=== PATIENT | female | born 1985 | race Hispanic/Latino ===

== ENCOUNTER 2019-05-27 09:37 | Emergency (ER) | payer SELFPAY ==
[2019-05-27] MEDS ORDERED: ACETAMINOPHEN EXTRA STRENGTH 500 MG TABLET ONE (10:07)
[2019-05-27 10:15] LABS: APPEARANCE,URINE Cloudy (CLEAR); BILIRUBIN,URINE Negative (NEGATIVE); COLOR,URINE Yellow (YELLOW); GLUCOSE, URINE (UA) >=1000 mg/dL (NEGATIVE); KETONES,URINE Negative (NEGATIVE); LEUKOCYTE ESTERASE ,URINE Negative (NEGATIVE); NITRATE,URINE Negative (NEGATIVE); OCCULT BLOOD,URINE Moderate (NEGATIVE); PROTEIN,URINE >=1000 mg/dL (NEGATIVE)
[2019-05-27 10:17] LABS: HCG,QUAL RESULT NEGATIVE (NEGATIVE)
[2019-05-27] MEDS ORDERED: SODIUM CHLORIDE 0.9% 1000ML 2,000 ML IV ONE (10:18)
[2019-05-27] MEDS ORDERED: IPRATROPIUM/ALBUTEROL SULFATE 3 ML SOLUTION IH ONE (10:21)
[2019-05-27 10:24] LABS: RAPID GROUP A STREP NEGATIVE (NEGATIVE)
[2019-05-27 10:31] LABS: BACTERIA,URINE Few /HPF (None Seen); WBC,URINE 0-1 /HPF (0-1); YEAST,URINE BUDDING Rare /HPF (None Seen)
[2019-05-27 10:34] LABS: BASOPHILS % (AUTO) 0.6 % (0.0-5.0); EOSINOPHILS % (AUTO) 1.3 % (0.0-8.0); HEMATOCRIT 32.4 % (36-48); MEAN CORPUSCULAR HEMOGLOBIN 29.7 pg (27.0-33.0); MEAN CORPUSCULAR VOLUME 90.1 fL (79-99); MONOCYTES % (AUTO) 3.9 % (3.0-13.0); NEUTROPHILS % (AUTO) 89.2 % (40.0-77.0); PLATELET COUNT (AUTO) 235 K/uL (130-400); RED CELL DISTRIBUTION WIDTH 11.9 % (11.0-15.5); WHITE BLOOD COUNT (AUTO) 11.5 K/uL (4.8-10.8)
[2019-05-27 10:46] LABS: ALBUMIN 1.8 g/dL (3.5-5.0); BILIRUBIN,TOTAL 0.1 mg/dL (0.2-1.0); CREATININE 1.3 mg/dL (0.5-1.5); TOTAL PROTEIN, SERUM 5.8 g/dL (6.0-8.3)
[2019-05-27 10:47] LABS: ABG OXYGEN SATURATION 88.1 % (95.0-99.0); BASE EXCESS,VENOUS BLOOD GAS -2.4 (-2.0-3.0); HCO3,VENOUS BLOOD GAS 22.4 (21.0-28.0); PCO2,VENOUS BLOOD GAS 39 (32-45); PH,VENOUS BLOOD GAS 7.377 (7.350-7.450)
[2019-05-27] MEDS ORDERED: INSULIN HUMULIN R 100 UNIT/ML 3ML ONE (11:04)
[2019-05-27] MEDS ORDERED: IBUPROFEN 600 MG TABLET ONE (12:31)
== END 2019-05-27 13:46 | disposition home or self-care (01) ==
LOC: EDH 09:37
DX: B34.9 Viral infection, unspecified (principal); E11.65 Type 2 diabetes mellitus with hyperglycemia; I10 Essential (primary) hypertension; Z88.0 Allergy status to penicillin; Z98.890 Other specified postprocedural states
CPT/HCPCS: 36415; 36600; 71046; 80053; 81001; 81025; 82010; 82803; 82948 ×2; 83605; 83690; 85025; 87040 ×2; 87804 ×2; 87880; 94640; 96361; 96374; 99285; J1815; J7030

== ENCOUNTER 2019-06-02 08:30 | Emergency (ER) | payer SELFPAY ==
[2019-06-02] MEDS ORDERED: DEXTROSE 50%-WATER 50 ML DISP.SYRIN IV ONE (08:40)
[2019-06-02 08:58] LABS: BASOPHILS % (AUTO) 1.1 % (0.0-5.0); EOSINOPHILS % (AUTO) 5.1 % (0.0-8.0); HEMATOCRIT 36.8 % (36-48); LYMPHOCYTES % (AUTO) 32.4 % (21.0-51.0); MEAN CORPUSCULAR HEMOGLOBIN 29.4 pg (27.0-33.0); MEAN CORPUSCULAR HGB CONC 33.9 g/dL (32.0-36.0); MEAN CORPUSCULAR VOLUME 86.6 fL (79-99); MONOCYTES % (AUTO) 8.4 % (3.0-13.0); NUCLEATED RED BLOOD CELLS 0.1 % (0.0-0.19); PLATELET COUNT (AUTO) 429 K/uL (130-400); RED BLOOD CELL COUNT(AUTO) 4.25 MIL/uL (4.00-5.50); RED CELL DISTRIBUTION WIDTH 12.1 % (11.0-15.5); WHITE BLOOD COUNT (AUTO) 11.6 K/uL (4.8-10.8)
[2019-06-02 09:07] LABS: ALBUMIN 2.4 g/dL (3.5-5.0); BILIRUBIN,TOTAL 0.4 mg/dL (0.2-1.0); CREATININE 1.3 mg/dL (0.5-1.5); POTASSIUM 3.3 mmol/L (3.5-5.1); TOTAL PROTEIN, SERUM 7.2 g/dL (6.0-8.3)
[2019-06-02 11:00] LABS: APPEARANCE,URINE CLOUDY (CLEAR); BILIRUBIN,URINE NEGATIVE (NEGATIVE); COLOR,URINE YELLOW (YELLOW); GLUCOSE, URINE (UA) 100 mg/dL (NEGATIVE); KETONES,URINE NEGATIVE (NEGATIVE); LEUKOCYTE ESTERASE ,URINE TRACE (NEGATIVE); NITRATE,URINE NEGATIVE (NEGATIVE); OCCULT BLOOD,URINE SMALL (NEGATIVE); PROTEIN,URINE >=300 mg/dL (NEGATIVE); UROBILINOGEN,URINE 0.2 mg/dL (0.2-1.0)
[2019-06-02 11:03] LABS: HCG,QUAL RESULT NEGATIVE (NEGATIVE)
[2019-06-02 11:04] LABS: BACTERIA,URINE Few /HPF (None Seen); MUCUS,URINE Few LPF (None Seen); SQUAMOUS EPITHELIAL CELL,UR Many /HPF (0-2)
[2019-06-02 11:05] LABS: YEAST,URINE BUDDING Few /HPF (None Seen)
[2019-06-02] MEDS ORDERED: METOPROLOL TARTRATE 50 MG TAB ONE (11:13)
== END 2019-06-02 12:19 | disposition home or self-care (01) ==
LOC: EDH 08:30
DX: E11.649 Type 2 diabetes mellitus with hypoglycemia without coma (principal); N39.0 Urinary tract infection, site not specified; I10 Essential (primary) hypertension; Z88.0 Allergy status to penicillin; Z79.4 Long term (current) use of insulin; Z79.899 Other long term (current) drug therapy
CPT/HCPCS: 36415; 80053; 81001; 81025; 82948 ×6; 85025; 96374; 96376; 99284; J7070

== ENCOUNTER 2019-08-03 09:05 | Emergency (ER) | payer SELFPAY ==
[2019-08-03] MEDS ORDERED: LIDOCAINE HCL 2% 20ML ONE (09:16)
[2019-08-03] MEDS ORDERED: BUPIVACAINE/PF 0.5% 30ML VIAL ONE (09:16)
[2019-08-03] MEDS ORDERED: SULFAMETHOX-TMP DS 800/160 TAB ONE (09:54)
== END 2019-08-03 10:25 | disposition home or self-care (01) ==
LOC: EDH 09:05
DX: S61.303A Unspecified open wound of left middle finger with damage to nail, initial encounter (principal); E11.9 Type 2 diabetes mellitus without complications; I10 Essential (primary) hypertension; H54.8 Legal blindness, as defined in USA; Z88.0 Allergy status to penicillin; Z79.899 Other long term (current) drug therapy; Z79.4 Long term (current) use of insulin; W23.0XXA Caught, crushed, jammed, or pinched between moving objects, initial encounter; Y93.89 Activity, other specified; Y92.89 Other specified places as the place of occurrence of the external cause; Y99.8 Other external cause status
CPT/HCPCS: 29130; 73130; 99284; J3490 ×2

== ENCOUNTER 2019-08-05 11:38 | Inpatient (IN) | payer SELFPAY ==
[~2019-08-05] VITALS: Ht 157.5 cm; Wt 68.0 kg
[2019-08-05 12:21] LABS: ABG OXYGEN SATURATION 35.7 % (95.0-99.0); BASE EXCESS,VENOUS BLOOD GAS -7.3 (-2.0-3.0); PCO2,VENOUS BLOOD GAS 42 (32-45); PH,VENOUS BLOOD GAS 7.278 (7.350-7.450)
[2019-08-05 12:31] LABS: BASOPHILS % (AUTO) 1.3 % (0.0-5.0); EOSINOPHILS % (AUTO) 4.6 % (0.0-8.0); HEMATOCRIT 34.9 % (36-48); LYMPHOCYTES % (AUTO) 27.3 % (21.0-51.0); MEAN CORPUSCULAR HEMOGLOBIN 28.5 pg (27.0-33.0); MEAN CORPUSCULAR VOLUME 86.6 fL (79-99); MONOCYTES % (AUTO) 4.7 % (3.0-13.0); PLATELET COUNT (AUTO) 292 K/uL (130-400); RED BLOOD CELL COUNT(AUTO) 4.03 MIL/uL (4.00-5.50); RED CELL DISTRIBUTION WIDTH 11.9 % (11.0-15.5)
[2019-08-05] MEDS ORDERED: SODIUM CHLORIDE 0.9% 1000ML 2,000 ML IV ONE (12:39)
[2019-08-05] MEDS ORDERED: ONDANSETRON HCL 4 MG/2 ML VIAL ONE (12:42)
[2019-08-05] MEDS ORDERED: MORPHINE SULFATE 4 MG/1ML SYG ONE (12:42)
[2019-08-05] MEDS ORDERED: CLINDAMYCIN 600 MG/D5% WATER 50 ML IV ONE ×2 (12:42→20:50)
[2019-08-05] MEDS ORDERED: INSULIN HUMULIN R 100 UNIT/ML 3ML ONE (12:43)
[2019-08-05 13:04] LABS: APPEARANCE,URINE Clear (CLEAR); BILIRUBIN,URINE Negative (NEGATIVE); COLOR,URINE Yellow (YELLOW); GLUCOSE, URINE (UA) >=1000 mg/dL (NEGATIVE); KETONES,URINE 15 mg/dL (NEGATIVE); LEUKOCYTE ESTERASE ,URINE Negative (NEGATIVE); NITRATE,URINE Negative (NEGATIVE); OCCULT BLOOD,URINE Small (NEGATIVE); PH,URINE 5.5 (5.0-8.0); PROTEIN,URINE 300 mg/dL (NEGATIVE); UROBILINOGEN,URINE 0.2 mg/dL (0.2-1.0)
[2019-08-05 13:09] LABS: HCG,QUAL RESULT NEGATIVE (NEGATIVE)
[2019-08-05 13:22] LABS: BACTERIA,URINE Rare /HPF (None Seen); RBC,URINE 0-1 /HPF (0-1); SQUAMOUS EPITHELIAL CELL,UR Rare /HPF (0-2); WBC,URINE 0-1 /HPF (0-1)
[2019-08-05 13:23] LABS: ALBUMIN 2.4 g/dL (3.5-5.0); BILIRUBIN,TOTAL 0.2 mg/dL (0.2-1.0); CREATININE 1.4 mg/dL (0.5-1.5); POTASSIUM 4.5 mmol/L (3.5-5.1); TOTAL PROTEIN, SERUM 6.5 g/dL (6.0-8.3)
[2019-08-05] MEDS ORDERED: ACETAMINOPHEN 325 MG TAB PO PRN (17:45)
[2019-08-05] MEDS: CLINDAMYCIN 600 MG/D5% WATER 50 ML IV SCH (17:45)
[2019-08-05] MEDS ORDERED: ONDANSETRON HCL 4 MG/2 ML VIAL IV PRN (17:45)
[2019-08-05 18:17] LABS: INR 0.82 (0.85-1.15); PROTHROMBIN TIME 8.7 SEC (9.6-11.6)
[2019-08-05] MEDS ORDERED: SODIUM CHLORIDE 0.9% 1000ML 1,000 ML IV ONE (20:50)
[2019-08-05] MEDS ORDERED: FAMOTIDINE/PF 20 MG/2 ML VIAL IV SCH (21:00)
[2019-08-05 22:04] VITALS: BP 154/92
[2019-08-05] MEDS ORDERED: SULF10VI2 IV (22:27)
[2019-08-06] VITALS (32 sets, daily range): BP systolic 101–166; BP diastolic 52–101
[2019-08-06] MEDS: INSULIN HUMULIN R 100 UNIT/ML 3ML SQ SCH ×6 (01:21→20:49)
[2019-08-06] MEDS: CLINDAMYCIN 600 MG/D5% WATER 50 ML IV SCH ×3 (04:08→16:46)
[2019-08-06 04:48] LABS: BASOPHILS % (AUTO) 1.2 % (0.0-5.0); EOSINOPHILS % (AUTO) 6.7 % (0.0-8.0); HEMATOCRIT 29.3 % (36-48); LYMPHOCYTES % (AUTO) 35.1 % (21.0-51.0); MEAN CORPUSCULAR HEMOGLOBIN 28.6 pg (27.0-33.0); MEAN CORPUSCULAR HGB CONC 32.8 g/dL (32.0-36.0); MEAN CORPUSCULAR VOLUME 87.2 fL (79-99); MONOCYTES % (AUTO) 6.6 % (3.0-13.0); NEUTROPHILS % (AUTO) 50.1 % (40.0-77.0); PLATELET COUNT (AUTO) 244 K/uL (130-400); RED BLOOD CELL COUNT(AUTO) 3.36 MIL/uL (4.00-5.50); WHITE BLOOD COUNT (AUTO) 5.8 K/uL (4.8-10.8)
[2019-08-06 05:02] LABS: CREATININE 1.1 mg/dL (0.5-1.5); POTASSIUM 4.7 mmol/L (3.5-5.1)
--- NOTE | 2019-08-06 08:25 | NUR ---
Contacted Dr. Da Silva to confirm he had been notified of consult for Lt middle finger accidental amputation. Notified patient was NPO. Received order for Lt third finger with possible full thickness skin grafting.
--- NOTE | 2019-08-06 08:41 | NUR ---
Order for surgery sent to OR. 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
[2019-08-06] MEDS: ENOXAPARIN SODIUM 30 MG/0.3 ML SQ SCH (09:00)
[2019-08-06] MEDS: FAMOTIDINE/PF 20 MG/2 ML VIAL IV SCH (11:11)
[2019-08-06] MEDS: SODIUM CHLORIDE 0.9% 1000ML 1,000 ML IV SCH ×3 (11:17→14:49)
[2019-08-06] MEDS ORDERED: MIDAZOLAM HCL 1 MG/ML 2ML VIAL ONE (12:32)
[2019-08-06] MEDS ORDERED: LIDOCAINE PF 2% 5ML ABBOJECT ONE (12:32)
[2019-08-06] MEDS ORDERED: PROPOFOL 10 MG/ML 20ML VIAL IV ONE (12:32)
[2019-08-06] MEDS ORDERED: FENTANYL CITRATE PF 50 MCG/1 ML 2ML VIAL ONE (12:33)
--- NOTE | 2019-08-06 12:35 | NUR ---
DIABETIC TEACHING discussed with patients sister the importance of following ADA diet ,gave her instructions on how to obtain the information ,voices understanding Addendum: 08/06/19 at 1303 by PRITI LEWIS RN RN Amended: Links added.
[2019-08-06] MEDS ORDERED: DEXAMETHASONE SOD PHOSPHATE 4 MG/ML 1ML VIAL ONE (12:59)
[2019-08-06] MEDS ORDERED: NEOMY SULF/POLYMYXIN B SULFATE 1 ML AMPUL IR ONE (13:05)
[2019-08-06] MEDS ORDERED: ONDANSETRON HCL 4 MG/2 ML VIAL ONE (13:15)
[2019-08-06] MEDS ORDERED: MEPERIDINE-PF 25 MG/ML SYG ONE (13:35)
[2019-08-06] MEDS ORDERED: MORPHINE SULFATE 4 MG/1ML SYG ONE (13:59)
--- NOTE | 2019-08-06 14:00 | NUR ---
4mg of morphine given slow IVP for pain to left middle finger
--- NOTE | 2019-08-06 14:11 | NUR ---
Received report from Stevo in PACU, regarding Lt Middle finger tissue graft performed by Dr. Da Silva. 25 mg Demerol and 4 mg Morphine administered. HR 103, R13, BP 129/75, O2 Sa 99% to room air. Stevo reports skin graft take from lower lt forearm and currently placed lt arm in sling.
[2019-08-06] MEDS: HYDROCODONE/ACETAMINOPHEN 5/325 MG TAB PO PRN ×2 (14:48→21:05)
--- NOTE | 2019-08-06 16:30 | NUR ---
Patient arrived AAOx3, stating pain to lt middle finger. BP 166/101, HR 114m, O2 Sa 99% on room air, crying from pain to middle finger. Stevo reports last morphine given at 14:00. Will administer hydrocodone, respirations at 15. No dressing applied to lt middle finger or skin graft from lt forearm. Graft appears clean, no drainage present, minimal odor. No current dressing instructions on file. Received verbal order for Tullos diet from Dr. Benoit. Addendum: 08/06/19 at 5130 by KIRTI KEVIN RN RN Correct time of note is 1430
--- NOTE | 2019-08-06 18:52 | NUR ---
DC PLAN MEET WITH PATIENT IN ROOM S/P SURGERY WITH DR. MALDONADO. 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 Addendum: 08/06/19 at 1853 by PEARL SNOW RN CM Amended: Links added.
--- NOTE | 2019-08-06 18:53 | NUR ---
CM NOTE SELF REFERRAL PACKET GIVEN TO PATIENT, PATIENT VERBALIZED UNDERSTANDING.PATIENT AWARE OF FAMILY MEMBER SUPPORT FOR WOUND CARE. NURSING AWARE OF NEED TO TEACH FAMILY DRESSING CHANGES IF REQUIRED. PENDING DC POSSIBLY 08/07/19 IF STABLE.
[2019-08-07] MEDS: CLINDAMYCIN 600 MG/D5% WATER 50 ML IV SCH ×3 (01:24→17:01)
[2019-08-07] MEDS: SODIUM CHLORIDE 0.9% 1000ML 1,000 ML IV SCH ×3 (01:24→20:45)
[2019-08-07 03:00] VITALS: BP 164/93
[2019-08-07 05:45] LABS: BASOPHILS % (AUTO) 0.9 % (0.0-5.0); HEMATOCRIT 30.7 % (36-48); LYMPHOCYTES % (AUTO) 29.1 % (21.0-51.0); MEAN CORPUSCULAR HEMOGLOBIN 28.4 pg (27.0-33.0); MEAN CORPUSCULAR HGB CONC 31.9 g/dL (32.0-36.0); MONOCYTES % (AUTO) 5.9 % (3.0-13.0); NEUTROPHILS % (AUTO) 57.9 % (40.0-77.0); PLATELET COUNT (AUTO) 268 K/uL (130-400); RED BLOOD CELL COUNT(AUTO) 3.45 MIL/uL (4.00-5.50); RED CELL DISTRIBUTION WIDTH 12.1 % (11.0-15.5); WHITE BLOOD COUNT (AUTO) 5.8 K/uL (4.8-10.8)
[2019-08-07 05:54] LABS: CREATININE 0.9 mg/dL (0.5-1.5); POTASSIUM 4.5 mmol/L (3.5-5.1)
[2019-08-07] MEDS: INSULIN HUMULIN R 100 UNIT/ML 3ML SQ SCH ×4 (07:07→20:48)
[2019-08-07 07:56] VITALS: BP 150/87
[2019-08-07] MEDS: FAMOTIDINE/PF 20 MG/2 ML VIAL IV SCH (08:21)
[2019-08-07] MEDS: HYDROCODONE/ACETAMINOPHEN 5/325 MG TAB PO PRN ×2 (08:25→14:41)
[2019-08-07] MEDS: ENOXAPARIN SODIUM 30 MG/0.3 ML SQ SCH (09:38)
[2019-08-07] MEDS: MORPHINE SULFATE 2 MG/ML 1ML SYG IVP PRN ×2 (11:51→20:49)
[2019-08-07 12:00] VITALS: BP 149/82
[2019-08-07 16:00] VITALS: BP 134/81
[2019-08-07] MEDS ORDERED: INSULIN HUMULIN R 100 UNIT/ML 3ML SQ SCH (16:30)
[2019-08-07 20:04] VITALS: BP 146/78
[2019-08-08 00:14] VITALS: BP 142/88
[2019-08-08] MEDS: CLINDAMYCIN 600 MG/D5% WATER 50 ML IV SCH ×2 (01:55→09:31)
[2019-08-08] MEDS: MORPHINE SULFATE 2 MG/ML 1ML SYG IVP PRN (01:56)
[2019-08-08 04:48] VITALS: BP 138/75
[2019-08-08 05:17] LABS: BASOPHILS % (AUTO) 0.8 % (0.0-5.0); EOSINOPHILS % (AUTO) 6.1 % (0.0-8.0); HEMATOCRIT 29.1 % (36-48); LYMPHOCYTES % (AUTO) 35.5 % (21.0-51.0); MEAN CORPUSCULAR HEMOGLOBIN 28.5 pg (27.0-33.0); MEAN CORPUSCULAR HGB CONC 32.3 g/dL (32.0-36.0); MEAN CORPUSCULAR VOLUME 88.2 fL (79-99); MONOCYTES % (AUTO) 5.7 % (3.0-13.0); NEUTROPHILS % (AUTO) 51.5 % (40.0-77.0); PLATELET COUNT (AUTO) 247 K/uL (130-400); WHITE BLOOD COUNT (AUTO) 5.1 K/uL (4.8-10.8)
[2019-08-08] MEDS: SODIUM CHLORIDE 0.9% 1000ML 1,000 ML IV SCH (05:35)
[2019-08-08 05:42] LABS: CREATININE 0.8 mg/dL (0.5-1.5); POTASSIUM 4.6 mmol/L (3.5-5.1)
[2019-08-08] MEDS: INSULIN HUMULIN R 100 UNIT/ML 3ML SQ SCH ×2 (07:21→11:39)
[2019-08-08 07:53] VITALS: BP 160/86
[2019-08-08] MEDS ORDERED: CLIN300C9 PO (08:02)
[2019-08-08] MEDS: FAMOTIDINE/PF 20 MG/2 ML VIAL IV SCH (09:31)
[2019-08-08] MEDS: ENOXAPARIN SODIUM 30 MG/0.3 ML SQ SCH (09:31)
[2019-08-08] MEDS: HYDROCODONE/ACETAMINOPHEN 5/325 MG TAB PO PRN (09:32)
--- NOTE | 2019-08-08 11:05 | NUR ---
Phoned Dr. Da Silva regarding wound care instructions for Lt middle finger s/p tissue graft. Per Dr. Da Silva, no wound care to be performed, keep dry. Per last notation, follow up after New Year. Patient explained follow up instructions and verbalized understanding.
[2019-08-08 11:51] VITALS: BP 154/82
== END 2019-08-08 14:11 | disposition home or self-care (01) | DRG 909 ==
LOC: EDH 11:38 → EDHIP 17:35 → 3DH 21:22
PROVIDERS: ADMIT Internal Medicine; ATTEND Internal Medicine
PROC: 0PBV0ZZ Excision of Left Finger Phalanx, Open Approach (ICD-10-PCS; principal; 2019-08-06 12:44)
DX: S68.123A Partial traumatic metacarpophalangeal amputation of left middle finger, initial encounter (principal); H54.8 Legal blindness, as defined in USA; E78.5 Hyperlipidemia, unspecified; I10 Essential (primary) hypertension; W22.8XXA Striking against or struck by other objects, initial encounter; E11.319 Type 2 diabetes mellitus with unspecified diabetic retinopathy without macular edema; Z88.0 Allergy status to penicillin; Z91.19 Patient's noncompliance with other medical treatment and regimen; Y93.89 Activity, other specified; Y92.89 Other specified places as the place of occurrence of the external cause; Y99.8 Other external cause status
CPT/HCPCS: 36415; 36600; 73140; 80048; 80053; 81001; 81025; 82010; 82435; 82803; 82947; 82948; 83605; 83690; 84132; 84295; 85025; 85610; 87040; 87070; 87076; A6453; G0378; J1100; J1650; J1815; J2001; J2175; J2250; J2270; J2405; J2704; J3010; J3490; J7030

== ENCOUNTER 2019-09-03 09:51 | Emergency (ER) | payer SELFPAY ==
[~2019-09-03 09:51] MED LIST: CLIN300C9 PO; SULF10VI2 IV
== END 2019-09-03 10:30 | disposition home or self-care (01) ==
LOC: EDH 09:51
DX: S68.123D Partial traumatic metacarpophalangeal amputation of left middle finger, subsequent encounter (principal); E11.9 Type 2 diabetes mellitus without complications; I10 Essential (primary) hypertension; Z88.0 Allergy status to penicillin; Z98.890 Other specified postprocedural states; X58.XXXD Exposure to other specified factors, subsequent encounter
CPT/HCPCS: 99282

== ENCOUNTER 2019-10-14 07:07 | Emergency (ER) | payer OTHER ==
[2019-10-14 07:49] LABS: EOSINOPHILS % (AUTO) 1.7 % (0.0-8.0); LYMPHOCYTES % (AUTO) 22.8 % (21.0-51.0); MEAN CORPUSCULAR HEMOGLOBIN 29.2 pg (27.0-33.0); MEAN CORPUSCULAR HGB CONC 32.8 g/dL (32.0-36.0); MEAN CORPUSCULAR VOLUME 88.9 fL (79-99); MONOCYTES % (AUTO) 4.5 % (3.0-13.0); NEUTROPHILS % (AUTO) 69.8 % (40.0-77.0); PLATELET COUNT (AUTO) 318 K/uL (130-400); RED CELL DISTRIBUTION WIDTH 11.7 % (11.0-15.5)
[2019-10-14] MEDS ORDERED: LORAZEPAM 2 MG/ML 1 ML VIAL ONE (07:49)
[2019-10-14] MEDS ORDERED: ASPIRIN 325 MG TABLET ONE (07:49)
[2019-10-14 08:03] LABS: INR 0.88 (0.85-1.15); PROTHROMBIN TIME 9.3 SEC (9.6-11.6)
[2019-10-14 09:17] LABS: ALBUMIN 2.9 g/dL (3.5-5.0); BILIRUBIN,TOTAL 0.1 mg/dL (0.2-1.0); CREATININE 1.4 mg/dL (0.5-1.5); POTASSIUM 4.7 mmol/L (3.5-5.1); TOTAL PROTEIN, SERUM 7.2 g/dL (6.0-8.3)
[2019-10-14 09:45] LABS: APPEARANCE,URINE Clear (CLEAR); BILIRUBIN,URINE Negative (NEGATIVE); COLOR,URINE Yellow (YELLOW); GLUCOSE, URINE (UA) 250 mg/dL (NEGATIVE); KETONES,URINE Negative (NEGATIVE); LEUKOCYTE ESTERASE ,URINE Trace (NEGATIVE); NITRATE,URINE Negative (NEGATIVE); OCCULT BLOOD,URINE Moderate (NEGATIVE); PROTEIN,URINE POS 2+ mg/dL (NEGATIVE); UROBILINOGEN,URINE 0.2 mg/dL (0.2-1.0)
[2019-10-14 09:49] LABS: AMPHET/METH SCREEN,URINE NEGATIVE (NEGATIVE); BARBITURATE SCREEN, URINE NEGATIVE (NEGATIVE); BENZODIAZEPINES SCREEN,URINE NEGATIVE (NEGATIVE); CANNABINOID SCREEN,URINE NEGATIVE (NEGATIVE); COCAINE SCREEN,URINE NEGATIVE (NEGATIVE); OPIATE SCREEN,URINE NEGATIVE (NEGATIVE); PHENCYCLIDINE SCREEN,URINE NEGATIVE (NEGATIVE)
[2019-10-14 09:59] LABS: BACTERIA,URINE Rare /HPF (None Seen); WBC,URINE 0-1 /HPF (0-1)
[2019-10-14 10:00] LABS: SQUAMOUS EPITHELIAL CELL,UR Few /HPF (0-2)
== END 2019-10-14 10:47 | disposition home or self-care (01) ==
LOC: EDH 07:07
DX: R07.89 Other chest pain (principal); E11.9 Type 2 diabetes mellitus without complications; I10 Essential (primary) hypertension; Z88.0 Allergy status to penicillin
CPT/HCPCS: 36415; 71045; 80053; 80305; 81001; 82550; 84484; 85025; 85610; 85730; 93005; 96374; 99285; J2060

== ENCOUNTER 2019-12-29 04:16 | Inpatient (IN) | payer MEDICAID, OTHER ==
[~2019-12-29] VITALS: Ht 172.7 cm; Wt 93.4 kg
[2019-12-29 04:57] LABS: ABG BASE EXCESS -8.6 mmol/L (-2.0-3.0); ABG HCO3 16.3 mmol/L (21.0-28.0); ABG OXYGEN SATURATION 97.2 % (95.0-99.0); ABG PCO2 32 mmHg (32-45)
[2019-12-29] MEDS ORDERED: INSULIN HUMULIN R 100 UNIT/ML 3ML ONE (04:59)
[2019-12-29 05:12] LABS: BASOPHILS % (AUTO) 0.6 % (0.0-5.0); EOSINOPHILS % (AUTO) 0.1 % (0.0-8.0); HEMATOCRIT 35.4 % (36-48); LYMPHOCYTES % (AUTO) 13.3 % (21.0-51.0); MEAN CORPUSCULAR HEMOGLOBIN 30.5 pg (27.0-33.0); MEAN CORPUSCULAR HGB CONC 33.9 g/dL (32.0-36.0); MEAN CORPUSCULAR VOLUME 90.1 fL (79-99); MONOCYTES % (AUTO) 5.2 % (3.0-13.0); NEUTROPHILS % (AUTO) 80.3 % (40.0-77.0); PLATELET COUNT (AUTO) 445 K/uL (130-400); RED BLOOD CELL COUNT(AUTO) 3.93 MIL/uL (4.00-5.50); RED CELL DISTRIBUTION WIDTH 12.6 % (11.0-15.5); WHITE BLOOD COUNT (AUTO) 11.1 K/uL (4.8-10.8)
[2019-12-29 05:31] LABS: INR 0.87 (0.85-1.15); PARTIAL THROMBOPLASTIN TIME 29.1 SEC (26.3-35.5); PROTHROMBIN TIME 9.4 SEC (9.6-11.6)
[2019-12-29 05:44] LABS: ALBUMIN 2.4 g/dL (3.5-5.0); BILIRUBIN,TOTAL 0.3 mg/dL (0.2-1.0); CREATININE 2.5 mg/dL (0.5-1.5); POTASSIUM 4.5 mmol/L (3.5-5.1); TOTAL PROTEIN, SERUM 6.7 g/dL (6.0-8.3)
[2019-12-29] MEDS ORDERED: ONDANSETRON HCL 4 MG/2 ML VIAL IV PRN (05:45)
[2019-12-29] MEDS: SODIUM CHLORIDE 0.9% 1000ML 1,000 ML IV SCH ×3 (06:00→19:20)
[2019-12-29] MEDS ORDERED: INSULIN REGULAR, HUMAN 3ML 100 UNIT in SODIUM CHLORIDE 0.9% 99 ML IV SCH ×2 (07:30)
[2019-12-29 08:11] LABS: APPEARANCE,URINE Clear (CLEAR); BILIRUBIN,URINE Negative (NEGATIVE); COLOR,URINE Yellow (YELLOW); GLUCOSE, URINE (UA) >=1000 mg/dL (NEGATIVE); KETONES,URINE 40 mg/dL (NEGATIVE); LEUKOCYTE ESTERASE ,URINE Negative (NEGATIVE); NITRATE,URINE Negative (NEGATIVE); OCCULT BLOOD,URINE Small (NEGATIVE); PROTEIN,URINE 300 mg/dL (NEGATIVE)
[2019-12-29 08:13] LABS: HCG,QUAL RESULT NEGATIVE (NEGATIVE)
[2019-12-29] MEDS ORDERED: NS-20 MEQ KCL 1000ML 1,000 ML IV ONE (08:19)
[2019-12-29 08:41] LABS: BACTERIA,URINE Few /HPF (None Seen); RBC,URINE 0-1 /HPF (0-1); SQUAMOUS EPITHELIAL CELL,UR Moderate /HPF (0-2)
[2019-12-29] MEDS ORDERED: CEFTRIAXONE SODIUM 1 GM ONE (08:45)
[2019-12-29] MEDS ORDERED: FAMOTIDINE/PF 20 MG/2 ML VIAL IV ONE (08:45)
[2019-12-29] MEDS ORDERED: SODIUM CHLORIDE 0.9% 50 ML IV ONE (08:46)
[2019-12-29 08:49] LABS: CREATININE 2.3 mg/dL (0.5-1.5); MAGNESIUM 2.3 mg/dL (1.80-2.40); POTASSIUM 4.2 mmol/L (3.5-5.1)
[2019-12-29] MEDS ORDERED: FAMOTIDINE/PF 20 MG/2 ML VIAL IV SCH (09:00)
--- NOTE | 2019-12-29 09:11 | NUR ---
DCP: HOME Sw met with pt who states she is on SSD for DM/ Blind. Pt lives with BF Vivienne Aranda [phone], has provider thru [facility] [place], 23hrs a week to assist with ADLS and home management. Pt has blind stick, w/c and tonya, no HH services. PCP is Dr Vicente and she uses [facility] for rx. Family drives to MD appt, provider attends all appts. Plan [place] home at [place] Addendum: 12/29/19 at 0914 by DENYS CARRILLO Amended: Links added.
[2019-12-29] MEDS ORDERED: SODIUM CHLORIDE 0.9% 1000ML 1,000 ML IV SCH (09:15)
[2019-12-29] MEDS ORDERED: ONDANSETRON HCL 4 MG/2 ML VIAL ONE (10:29)
[2019-12-29] MEDS ORDERED: POTASSIUM CHLORIDE 20MEQ/100ML 100 ML IV PRN (11:00)
[2019-12-29] MEDS ORDERED: POTASSIUM CHLORIDE 10% ELIXIR 20 MEQ/15 ML UDCUP PO PRN (11:00)
[2019-12-29] MEDS ORDERED: POTASSIUM CHLORIDE 20 MEQ ERTAB PO PRN (11:00)
[2019-12-29] MEDS ORDERED: LIDOCAINE HCL-MPF 1% 2ML VIAL IJ PRN (11:00)
[2019-12-29 13:30] LABS: CREATININE 2.2 mg/dL (0.5-1.5)
--- NOTE | 2019-12-29 14:56 | NUR ---
EXPECTING DISPOSITION TO HOME PT IS UNINSURED. CM TO FOLLOW NEEDED AND WAIT FOR MD RECOMMENDATIONS Addendum: 12/29/19 at 1502 by DAVID DAVIS RN CM Amended: Links added.
[2019-12-29] MEDS: INSULIN LISPRO 100 UNIT/ML 3ML SQ SCH ×3 (16:30→22:08)
[2019-12-29] MEDS: CEFTRIAXONE SODIUM 1 GM IVP SCH (18:00)
[2019-12-29] MEDS: INSULIN GLARGINE 100 UNITS/ML 10 ML VIAL SQ SCH (22:06)
[2019-12-29] MEDS ORDERED: METOPROLOL TARTRATE 25 MG TAB ONE (22:10)
--- NOTE | 2019-12-29 23:04 | NUR ---
metoprolol not administered
[2019-12-30] MEDS: SODIUM CHLORIDE 0.9% 1000ML 1,000 ML IV SCH ×4 (02:00→21:10)
[2019-12-30 02:15] VITALS: BP 144/74
--- NOTE | 2019-12-30 03:30 | NUR ---
0200: Received patient to room 329, assessment done, breath sounds clear, abdomen round and soft, bowel sounds active. According to patient last bowel movement was on the 27 of December. No edema noted to any of her extremities, breathing nonlabored. Strength to all extremities strong. Patient given call light to call as needed, verbalized understanding. Bed alarm placed in use.
[2019-12-30] MEDS: CEFTRIAXONE SODIUM 1 GM IVP SCH ×2 (06:11→17:03)
[2019-12-30] MEDS: INSULIN LISPRO 100 UNIT/ML 3ML SQ SCH ×7 (06:19→21:00)
[2019-12-30 06:33] LABS: EOSINOPHILS % (AUTO) 2.4 % (0.0-8.0); HEMATOCRIT 30.4 % (36-48); LYMPHOCYTES % (AUTO) 31.6 % (21.0-51.0); MEAN CORPUSCULAR HEMOGLOBIN 29.6 pg (27.0-33.0); MEAN CORPUSCULAR HGB CONC 32.2 g/dL (32.0-36.0); MEAN CORPUSCULAR VOLUME 91.8 fL (79-99); MONOCYTES % (AUTO) 5.4 % (3.0-13.0); NEUTROPHILS % (AUTO) 59.2 % (40.0-77.0); PLATELET COUNT (AUTO) 314 K/uL (130-400); RED BLOOD CELL COUNT(AUTO) 3.31 MIL/uL (4.00-5.50); RED CELL DISTRIBUTION WIDTH 13.1 % (11.0-15.5); WHITE BLOOD COUNT (AUTO) 7.2 K/uL (4.8-10.8)
[2019-12-30 06:43] LABS: ALBUMIN 1.8 g/dL (3.5-5.0); BILIRUBIN,TOTAL 0.1 mg/dL (0.2-1.0); TOTAL PROTEIN, SERUM 5.4 g/dL (6.0-8.3)
[2019-12-30 06:59] LABS: HEMOGLOBIN A1C 9.8 % (4.0-6.0)
[2019-12-30 07:55] VITALS: BP 137/59
[2019-12-30] MEDS ORDERED: INSULIN GLARGINE 100 UNITS/ML 10 ML VIAL SQ SCH (08:45)
[2019-12-30] MEDS: PANTOPRAZOLE SODIUM 40 MG TABLET.DR PO SCH ×2 (10:15→17:03)
[2019-12-30 12:05] LABS: PROTEIN,URINE RANDOM 419.3 mg/dL (0-11.9)
[2019-12-30 12:40] VITALS: BP 144/73
[2019-12-30 16:09] VITALS: BP 135/72
[2019-12-30 19:38] VITALS: BP 138/75
[2019-12-30] MEDS: INSULIN GLARGINE 100 UNITS/ML 10 ML VIAL SQ SCH (21:13)
[2019-12-30 23:58] VITALS: BP 159/81
[2019-12-31 04:00] VITALS: BP 157/86
[2019-12-31 04:33] LABS: BASOPHILS % (AUTO) 1.1 % (0.0-5.0); EOSINOPHILS % (AUTO) 3.2 % (0.0-8.0); HEMATOCRIT 30.3 % (36-48); LYMPHOCYTES % (AUTO) 35.6 % (21.0-51.0); MEAN CORPUSCULAR HEMOGLOBIN 30.2 pg (27.0-33.0); MEAN CORPUSCULAR HGB CONC 32.7 g/dL (32.0-36.0); MEAN CORPUSCULAR VOLUME 92.4 fL (79-99); MONOCYTES % (AUTO) 5.6 % (3.0-13.0); PLATELET COUNT (AUTO) 309 K/uL (130-400); RED BLOOD CELL COUNT(AUTO) 3.28 MIL/uL (4.00-5.50); RED CELL DISTRIBUTION WIDTH 12.5 % (11.0-15.5); WHITE BLOOD COUNT (AUTO) 6.6 K/uL (4.8-10.8)
[2019-12-31 04:42] LABS: CREATININE 1.2 mg/dL (0.5-1.5); POTASSIUM 3.9 mmol/L (3.5-5.1)
[2019-12-31] MEDS: CEFTRIAXONE SODIUM 1 GM IVP SCH ×2 (05:19→18:26)
[2019-12-31] MEDS: SODIUM CHLORIDE 0.9% 1000ML 1,000 ML IV SCH (05:19)
[2019-12-31 08:00] VITALS: BP 163/97
[2019-12-31] MEDS: INSULIN LISPRO 100 UNIT/ML 3ML SQ SCH ×5 (08:05→21:00)
[2019-12-31] MEDS ORDERED: INSULIN HUMULIN 70/30 100 UNIT/ML 3ML SQ SCH ×2 (09:00→16:30)
[2019-12-31] MEDS: PANTOPRAZOLE SODIUM 40 MG TABLET.DR PO SCH ×2 (11:23→18:26)
[2019-12-31] MEDS: AMLODIPINE BESYLATE 5 MG TAB PO SCH (11:23)
[2019-12-31 12:00] VITALS: BP 167/98
[2019-12-31 16:00] VITALS: BP 168/94
[2019-12-31 21:09] VITALS: BP 141/81
[2020-01-01 01:11] VITALS: BP 139/83
[2020-01-01 05:04] VITALS: BP 146/90
[2020-01-01] MEDS: INSULIN LISPRO 100 UNIT/ML 3ML SQ SCH ×3 (06:15→20:49)
[2020-01-01] MEDS: CEFTRIAXONE SODIUM 1 GM IVP SCH ×2 (06:15→17:50)
[2020-01-01 06:52] LABS: CREATININE 1.1 mg/dL (0.5-1.5); POTASSIUM 3.8 mmol/L (3.5-5.1)
[2020-01-01 08:00] VITALS: BP 171/107
[2020-01-01] MEDS: AMLODIPINE BESYLATE 5 MG TAB PO SCH (08:21)
[2020-01-01] MEDS: PANTOPRAZOLE SODIUM 40 MG TABLET.DR PO SCH ×2 (08:21→17:50)
[2020-01-01] MEDS: INSULIN HUMULIN 70/30 100 UNIT/ML 3ML SQ SCH (08:41)
[2020-01-01 12:00] VITALS: BP 169/86
[2020-01-01] MEDS ORDERED: AMLO10TA7 PO (15:54)
[2020-01-01] MEDS ORDERED: PANT40TA PO (15:54)
[2020-01-01] MEDS ORDERED: LISI10TA7 PO (15:54)
[2020-01-01 16:00] VITALS: BP 145/88
[2020-01-01] MEDS ORDERED: INSULIN HUMULIN 70/30 100 UNIT/ML 3ML SQ SCH (17:45)
[2020-01-01 20:51] VITALS: BP 155/85
[2020-01-02 00:04] VITALS: BP 152/88
[2020-01-02 05:39] LABS: BASOPHILS % (AUTO) 1.2 % (0.0-5.0); EOSINOPHILS % (AUTO) 4.3 % (0.0-8.0); HEMATOCRIT 31.1 % (36-48); LYMPHOCYTES % (AUTO) 39.9 % (21.0-51.0); MEAN CORPUSCULAR HGB CONC 34.1 g/dL (32.0-36.0); MEAN CORPUSCULAR VOLUME 88.1 fL (79-99); MONOCYTES % (AUTO) 6.5 % (3.0-13.0); NEUTROPHILS % (AUTO) 47.9 % (40.0-77.0); PLATELET COUNT (AUTO) 294 K/uL (130-400); RED BLOOD CELL COUNT(AUTO) 3.53 MIL/uL (4.00-5.50); RED CELL DISTRIBUTION WIDTH 12.3 % (11.0-15.5); WHITE BLOOD COUNT (AUTO) 5.1 K/uL (4.8-10.8)
[2020-01-02 06:08] LABS: POTASSIUM 3.8 mmol/L (3.5-5.1)
[2020-01-02 06:20] VITALS: BP 159/97
[2020-01-02] MEDS: CEFTRIAXONE SODIUM 1 GM IVP SCH (06:29)
[2020-01-02] MEDS: INSULIN LISPRO 100 UNIT/ML 3ML SQ SCH ×2 (06:30→12:46)
[2020-01-02] MEDS: PANTOPRAZOLE SODIUM 40 MG TABLET.DR PO SCH (07:37)
[2020-01-02] MEDS: INSULIN HUMULIN 70/30 100 UNIT/ML 3ML SQ SCH (07:38)
[2020-01-02 08:00] VITALS: BP 164/89
[2020-01-02] MEDS: AMLODIPINE BESYLATE 5 MG TAB PO SCH (09:30)
[2020-01-02 11:44] VITALS: BP 165/87
[2020-01-02] MEDS ORDERED: INS7030 SQ (15:34)
[2020-01-02] MEDS ORDERED: HUM10VIA SQ (15:35)
--- NOTE | 2020-01-02 15:45 | NUR ---
PER MD ORDERS DISCHARGE PT. PIV REMOVED, TIP INTACT. EDUCATED PT AND HER PARTNER ON DIABETES, HYPOGLYCEMIA, HYPERGLYCEMIA, DIABETIC DIETS, INSULIN, ECT. PROVIDED THEM PAPER COPIES OF INFORMATION, BOTH VERBALIZED UNDERSTANDING. PT WAS ALSO INFORMED THAT IT IS IMPORTANT TO FOLLOW UP WITH PCP, DR ANGEL, AND DR BURR. PT VERBALIZED UNDERSTANDING.
[2020-01-02] MEDS ORDERED: INSULIN HUMULIN 70/30 100 UNIT/ML 3ML SQ SCH (16:30)
== END 2020-01-02 15:45 | disposition home or self-care (01) | DRG 682 ==
LOC: EDH 04:16 → EDHIP 04:17 → 3DH 12-30 01:22 → 3AH 12-30 01:54
PROVIDERS: ADMIT Internal Medicine; ATTEND Internal Medicine
DX: N17.9 Acute kidney failure, unspecified (principal); E10.10 Type 1 diabetes mellitus with ketoacidosis without coma; E10.319 Type 1 diabetes mellitus with unspecified diabetic retinopathy without macular edema; D64.9 Anemia, unspecified; E10.22 Type 1 diabetes mellitus with diabetic chronic kidney disease; E78.5 Hyperlipidemia, unspecified; E86.0 Dehydration; H54.3 Unqualified visual loss, both eyes; I12.9 Hypertensive chronic kidney disease with stage 1 through stage 4 chronic kidney disease, or unspecified chronic kidney disease; N18.9 Chronic kidney disease, unspecified; E10.65 Type 1 diabetes mellitus with hyperglycemia; Z79.4 Long term (current) use of insulin; Z88.0 Allergy status to penicillin; Z88.2 Allergy status to sulfonamides; Z88.8 Allergy status to other drugs, medicaments and biological substances; Z83.3 Family history of diabetes mellitus; Z82.49 Family history of ischemic heart disease and other diseases of the circulatory system
CPT/HCPCS: 36415; 36600; 71045; 76770; 80048; 80053; 80061; 81001; 81025; 82010; 82150; 82550; 82570; 82803; 82948; 83036; 83540; 83550; 83690; 83735; 84105; 84145; 84156; 84300; 84443; 84484; 85025; 85610; 85730; 87088; 93005; 99291; G0378; J0696; J1815; J2405; J3480; J3490; J7030

== ENCOUNTER 2020-02-04 11:37 | Inpatient (IN) | payer OTHER, SELFPAY ==
[~2020-02-04] VITALS: Ht 172.7 cm; Wt 77.1 kg
[~2020-02-04 11:37] MED LIST changes: +AMLO-258 PO; -CLIN300C9 PO; +HUM10VIA SQ; +INS7030 SQ; +LISI10TA7 PO; +PANT40TA PO; -SULF10VI2 IV
[2020-02-04] MEDS ORDERED: SODIUM CHLORIDE 0.9% 1000ML 1,000 ML IV ONE (12:04)
[2020-02-04 12:08] LABS: BASOPHILS % (AUTO) 0.6 % (0.0-5.0); EOSINOPHILS % (AUTO) 2.8 % (0.0-8.0); HEMATOCRIT 39.2 % (36-48); LYMPHOCYTES % (AUTO) 9.3 % (21.0-51.0); MEAN CORPUSCULAR HEMOGLOBIN 29.3 pg (27.0-33.0); MEAN CORPUSCULAR HGB CONC 32.7 g/dL (32.0-36.0); MEAN CORPUSCULAR VOLUME 89.7 fL (79-99); MONOCYTES % (AUTO) 4.2 % (3.0-13.0); NEUTROPHILS % (AUTO) 82.6 % (40.0-77.0); PLATELET COUNT (AUTO) 332 K/uL (130-400); RED BLOOD CELL COUNT(AUTO) 4.37 MIL/uL (4.00-5.50); RED CELL DISTRIBUTION WIDTH 11.9 % (11.0-15.5); WHITE BLOOD COUNT (AUTO) 10.9 K/uL (4.8-10.8)
[2020-02-04 12:24] LABS: CREATININE 1.5 mg/dL (0.5-1.5); POTASSIUM 5.6 mmol/L (3.5-5.1)
[2020-02-04 12:28] LABS: ALBUMIN 2.1 g/dL (3.5-5.0); BILIRUBIN,TOTAL 0.2 mg/dL (0.2-1.0); TOTAL PROTEIN, SERUM 6.5 g/dL (6.0-8.3)
[2020-02-04] MEDS ORDERED: LOPERAMIDE HCL 2 MG CAP PO ONE (15:48)
[2020-02-04] MEDS ORDERED: LABETALOL 20 MG/4 ML DISP.SYRIN IV ONE (18:32)
[2020-02-04 18:58] LABS: ABG HCO3 13.3 mmol/L (21.0-28.0); ABG OXYGEN SATURATION 96.7 % (95.0-99.0); ABG PCO2 32 mmHg (32-45)
[2020-02-04] MEDS ORDERED: SODIUM CHLORIDE 0.9% 100 ML IV ONE (19:35)
[2020-02-04] MEDS ORDERED: INSULIN HUMULIN R 100 UNIT/ML 3ML ONE (19:38)
[2020-02-04] MEDS ORDERED: SODIUM CHLORIDE 0.9% 1000ML 1,000 ML IV SCH (19:50)
[2020-02-04] MEDS ORDERED: DEXTROSE 5 %-0.45 % NACL 1,000 ML IV PRN (19:50)
[2020-02-04] MEDS ORDERED: POTASSIUM CHLORIDE 10MEQ/100ML 100 ML IV PRN (20:00)
[2020-02-04] MEDS ORDERED: INSULIN HUMULIN R 100 UNIT/ML 3ML IV SCH (20:00)
[2020-02-04] MEDS ORDERED: NITROGLYCERIN 0.4 MG SL TAB SL PRN (20:30)
[2020-02-04] MEDS ORDERED: ONDANSETRON HCL 4 MG/2 ML VIAL IV PRN (20:30)
[2020-02-04] MEDS ORDERED: ACETAMINOPHEN 325 MG TAB PO PRN ×2 (20:30)
[2020-02-04] MEDS ORDERED: DIPHENHYDRAMINE HCL 25 MG CAPSULE PO PRN (20:30)
[2020-02-04 20:45] LABS: CREATININE 1.2 mg/dL (0.5-1.5); MAGNESIUM 1.6 mg/dL (1.80-2.40); POTASSIUM 5.8 mmol/L (3.5-5.1)
[2020-02-04] MEDS ORDERED: MAGNESIUM 2GM PREMIX 50ML 50 ML IV SCH (21:00)
[2020-02-04] MEDS: FAMOTIDINE/PF 20 MG/2 ML VIAL IV SCH (21:00)
[2020-02-04 21:31] LABS: ABG OXYGEN SATURATION 48.4 % (95.0-99.0); BASE EXCESS,VENOUS BLOOD GAS -11.8 (-2.0-3.0); HCO3,VENOUS BLOOD GAS 15.6 (21.0-28.0); PCO2,VENOUS BLOOD GAS 40 (32-45); PH,VENOUS BLOOD GAS 7.206 (7.350-7.450)
[2020-02-04] MEDS ORDERED: MAGNESIUM 2GM PREMIX 50ML 50 ML IV ONE (21:33)
[2020-02-04] MEDS ORDERED: SODIUM BICARB 50MEQ 50ML VIAL IV ONE (21:45)
[2020-02-04] MEDS ORDERED: FAMOTIDINE/PF 20 MG/2 ML VIAL IV ONE (22:39)
[2020-02-04] MEDS ORDERED: SODIUM BICARB 50MEQ 50ML VIAL ONE (22:39)
[2020-02-04 23:39] LABS: APPEARANCE,URINE Clear (CLEAR); BILIRUBIN,URINE Negative (NEGATIVE); COLOR,URINE Yellow (YELLOW); GLUCOSE, URINE (UA) >=1000 mg/dL (NEGATIVE); KETONES,URINE 15 mg/dL (NEGATIVE); LEUKOCYTE ESTERASE ,URINE Negative (NEGATIVE); NITRATE,URINE Negative (NEGATIVE); OCCULT BLOOD,URINE Moderate (NEGATIVE); PROTEIN,URINE >=1000 mg/dL (NEGATIVE); UROBILINOGEN,URINE 0.2 mg/dL (0.2-1.0)
[2020-02-04 23:42] LABS: HCG,QUAL RESULT NEGATIVE (NEGATIVE)
[2020-02-04 23:57] LABS: BACTERIA,URINE Rare /HPF (None Seen)
[2020-02-05 00:24] LABS: ABG OXYGEN SATURATION 43.3 % (95.0-99.0); BASE EXCESS,VENOUS BLOOD GAS -8.4 (-2.0-3.0); HCO3,VENOUS BLOOD GAS 18.2 (21.0-28.0); PCO2,VENOUS BLOOD GAS 41 (32-45); PH,VENOUS BLOOD GAS 7.262 (7.350-7.450)
[2020-02-05 00:42] LABS: CREATININE 1.1 mg/dL (0.5-1.5); MAGNESIUM 2.1 mg/dL (1.80-2.40); POTASSIUM 4.7 mmol/L (3.5-5.1)
[2020-02-05] MEDS ORDERED: CALCIUM GLUCONATE 1 GM in SODIUM CHLORIDE 0.9% 100 ML IV SCH ×2 (01:00→05:45)
[2020-02-05] MEDS ORDERED: SODIUM BICARB 50MEQ 50ML VIAL IV ONE ×2 (01:00→05:00)
[2020-02-05] MEDS ORDERED: DEXTROSE 5 %-0.45 % NACL 1,000 ML IV ONE (01:18)
[2020-02-05] MEDS ORDERED: CALCIUM GLUCONATE 1 GM/10 ML VIAL IV ONE ×2 (01:18→05:48)
[2020-02-05] MEDS ORDERED: SODIUM BICARB 50MEQ 50ML VIAL ONE ×2 (01:19→05:48)
[2020-02-05] MEDS ORDERED: SODIUM CHLORIDE 0.9% 50 ML IV ONE ×2 (02:58→05:49)
[2020-02-05 04:45] LABS: ABG OXYGEN SATURATION 47.9 % (95.0-99.0); BASE EXCESS,VENOUS BLOOD GAS -4.9 (-2.0-3.0); HCO3,VENOUS BLOOD GAS 21.5 (21.0-28.0); PCO2,VENOUS BLOOD GAS 44 (32-45); PH,VENOUS BLOOD GAS 7.303 (7.350-7.450)
[2020-02-05 05:17] LABS: HEMATOCRIT 31.5 % (36-48); MEAN CORPUSCULAR HEMOGLOBIN 29.5 pg (27.0-33.0); MEAN CORPUSCULAR HGB CONC 32.7 g/dL (32.0-36.0); MEAN CORPUSCULAR VOLUME 90.3 fL (79-99); PLATELET COUNT (AUTO) 291 K/uL (130-400); RED BLOOD CELL COUNT(AUTO) 3.49 MIL/uL (4.00-5.50); WHITE BLOOD COUNT (AUTO) 8.8 K/uL (4.8-10.8)
[2020-02-05 05:36] LABS: EOSINOPHILS % (MANUAL) 4 % (1-6); LYMPHOCYTES % (MANUAL) 30 % (22-44); MONOCYTES % (MANUAL) 6 % (2-9); SEGMENTED NEUTROPHILS % 60 % (40-70)
[2020-02-05 05:37] LABS: MAN.DIFF COMMENT-IMPRESSION MANUAL DIFFERENTIAL
[2020-02-05 05:45] LABS: CREATININE 1.3 mg/dL (0.5-1.5); POTASSIUM 3.6 mmol/L (3.5-5.1)
[2020-02-05] MEDS: SODIUM CHLORIDE 0.9% 1000ML 1,000 ML IV SCH ×2 (06:00→16:00)
[2020-02-05] MEDS ORDERED: GLUCAGON 1MG KIT 1 MG ML IM PRN (06:00)
[2020-02-05] MEDS ORDERED: DEXTROSE 50%-WATER 50 ML DISP.SYRIN IV PRN (06:00)
[2020-02-05] MEDS ORDERED: SODIUM CHLORIDE 0.9% 1000ML 1,000 ML IV ONE (06:29)
[2020-02-05] MEDS: INSULIN HUMULIN R 100 UNIT/ML 3ML SQ SCH ×4 (07:30→21:00)
[2020-02-05 08:29] LABS: ABG OXYGEN SATURATION 24.7 % (95.0-99.0); BASE EXCESS,VENOUS BLOOD GAS -4.9 (-2.0-3.0); HCO3,VENOUS BLOOD GAS 21.9 (21.0-28.0); PCO2,VENOUS BLOOD GAS 47 (32-45); PH,VENOUS BLOOD GAS 7.288 (7.350-7.450)
[2020-02-05] MEDS ORDERED: ENOXAPARIN SODIUM 40 MG/0.4 ML SYRINGE SQ ONE (08:42)
[2020-02-05] MEDS ORDERED: FAMOTIDINE/PF 20 MG/2 ML VIAL IV ONE (08:42)
[2020-02-05] MEDS: ENOXAPARIN SODIUM 40 MG/0.4 ML SYRINGE SQ SCH (09:00)
[2020-02-05] MEDS: INSULIN GLARGINE 100 UNITS/ML 10 ML VIAL SQ SCH (09:00)
[2020-02-05] MEDS: FAMOTIDINE/PF 20 MG/2 ML VIAL IV SCH ×2 (09:00→21:00)
--- NOTE | 2020-02-05 15:56 | NUR ---
INITIAL SW spoke with patient. Patient lives with boyfriend, Vivienne [place], [phone]. No home health but had [facility] 23 hours a week. Patient does not remember the name of the agency. DME: glucometer (uses insulin), wheelchair, blind cane. Patient needs help with ADL's and doesn't drive. PCP is Dr. Tavares Vicente. Pharmacy is [facility] located on [facility] in [place]. DCP is home. Patient has no insurance or benefits. [place] citizen. SW educated patient on $4 Luminetx and [facility] $5 medication program. Patient states she will have Medicare effective February 09, 2020. Patient is being assisted by [facility]. Addendum: 02/05/20 at 1601 by BISHNU ESTRADA SS Amended: Links added.
[2020-02-05] MEDS ORDERED: CALCIUM CHLORIDE 100 MG/ML 10 ML SYG IVP SCH (17:30)
[2020-02-05] MEDS ORDERED: INSULIN HUMULIN R 100 UNIT/ML 3ML ONE (18:26)
[2020-02-05] MEDS ORDERED: HYDRALAZINE HCL 20 MG/ML VIAL ONE (20:04)
[2020-02-06 05:16] LABS: HEMATOCRIT 31.8 % (36-48); MEAN CORPUSCULAR HEMOGLOBIN 29.4 pg (27.0-33.0); MEAN CORPUSCULAR VOLUME 89.1 fL (79-99); PLATELET COUNT (AUTO) 285 K/uL (130-400); RED BLOOD CELL COUNT(AUTO) 3.57 MIL/uL (4.00-5.50); RED CELL DISTRIBUTION WIDTH 11.8 % (11.0-15.5)
[2020-02-06 05:25] LABS: CREATININE 1.2 mg/dL (0.5-1.5); MAGNESIUM 1.8 mg/dL (1.80-2.40); POTASSIUM 3.6 mmol/L (3.5-5.1)
[2020-02-06 06:31] LABS: BAND NEUTROPHILS % (MANUAL) 2 % (0-2); EOSINOPHILS % (MANUAL) 1 % (1-6); LYMPHOCYTES % (MANUAL) 13 % (22-44); MAN.DIFF COMMENT-IMPRESSION MANUAL DIFFERENTIAL; MONOCYTES % (MANUAL) 5 % (2-9); PLATELET MORPHOLOGY COMMENT ADEQUATE; SEGMENTED NEUTROPHILS % 79 % (40-70)
[2020-02-06] MEDS ORDERED: INSULIN HUMULIN R 100 UNIT/ML 3ML ONE ×2 (06:50→12:19)
[2020-02-06] MEDS: INSULIN HUMULIN R 100 UNIT/ML 3ML SQ SCH ×2 (07:30→12:21)
[2020-02-06] MEDS: ENOXAPARIN SODIUM 40 MG/0.4 ML SYRINGE SQ SCH (09:00)
[2020-02-06] MEDS: FAMOTIDINE/PF 20 MG/2 ML VIAL IV SCH (09:00)
[2020-02-06] MEDS: INSULIN GLARGINE 100 UNITS/ML 10 ML VIAL SQ SCH (09:00)
[2020-02-06] MEDS ORDERED: ENOXAPARIN SODIUM 40 MG/0.4 ML SYRINGE SQ ONE (09:05)
[2020-02-06] MEDS ORDERED: FAMOTIDINE/PF 20 MG/2 ML VIAL IV ONE (09:06)
[2020-02-06] MEDS: SODIUM CHLORIDE 0.9% 1000ML 1,000 ML IV SCH (11:54)
[2020-02-06 12:14] VITALS: BP 189/89
[2020-02-06] MEDS ORDERED: AMLODIPINE BESYLATE 5 MG TAB ONE (12:48)
[2020-02-06] MEDS ORDERED: AMLO-258 PO (13:30)
[2020-02-06] MEDS ORDERED: LISI-613 PO (13:30)
[2020-02-06 14:40] VITALS: BP 164/72
--- NOTE | 2020-02-06 14:48 | NUR ---
DISCHARGE INSTRUCTIONS GIVEN TO PATIENT, MADE AWARE OF NEED TO FOLLOW UP WITH PCP IN 3-5 DAYS, MADE AWARE SHE IS PENDING COVID 19 RESULTS AND NEEDS TO FOLLOW UP WITH PCP FOR THESE RESULTS. PATIENT AT THIS TIME AAOX3, DENIES ANY PAIN, NO SOB OR COUGHING NOTED. IV REMOVED. MADE AWARE OF NEW RX FOR LISINOPRIL. PATIENT WILL BE PICKED UP BY HER MOTHER IN [place]
[2020-02-07] MEDS ORDERED: AMLODIPINE BESYLATE 5 MG TAB PO SCH (13:00)
[2020-02-07] MEDS ORDERED: LISINOPRIL 10 MG TABLET PO SCH (13:00)
== END 2020-02-06 15:22 | disposition home or self-care (01) | DRG 638 ==
LOC: EDH 11:37 → EDHIP 11:38
PROVIDERS: ADMIT Internal Medicine; ATTEND Internal Medicine
DX: E10.10 Type 1 diabetes mellitus with ketoacidosis without coma (principal); E87.1 Hypo-osmolality and hyponatremia; N18.3 Chronic kidney disease, stage 3 (moderate); E10.319 Type 1 diabetes mellitus with unspecified diabetic retinopathy without macular edema; H54.3 Unqualified visual loss, both eyes; I12.9 Hypertensive chronic kidney disease with stage 1 through stage 4 chronic kidney disease, or unspecified chronic kidney disease; E78.5 Hyperlipidemia, unspecified; E86.0 Dehydration; E87.5 Hyperkalemia; E83.42 Hypomagnesemia; E83.51 Hypocalcemia; E10.22 Type 1 diabetes mellitus with diabetic chronic kidney disease; Z20.828 Contact with and (suspected) exposure to other viral communicable diseases; Z88.0 Allergy status to penicillin; Z83.3 Family history of diabetes mellitus; Z82.49 Family history of ischemic heart disease and other diseases of the circulatory system
CPT/HCPCS: 36415; 36600; 80048; 80053; 81001; 81025; 82010; 82270; 82330; 82803; 82948; 83605; 83630; 83690; 83735; 84132; 84443; 85025; 87046; 87177; 87324; 93005; 99291; G0378; J0360; J0610; J1650; J1815; J3475; J3490; J7030; J7042; U0003

== ENCOUNTER 2021-06-06 21:57 | Inpatient (IN) | payer OTHER ==
[~2021-06-06] VITALS: Ht 162.6 cm; Wt 82.4 kg
[~2021-06-06 21:57] MED LIST changes: -INS7030 SQ; -LISI10TA7 PO; +LISI20TA24 PO
[2021-06-06] MEDS ORDERED: INSULIN HUMULIN R 100 UNIT/ML 3ML SQ ONE (23:00)
[2021-06-06] MEDS ORDERED: LACTATED RINGERS 1000ML 1,000 ML IV ONE (23:00)
[2021-06-06] MEDS ORDERED: PROCHLORPERAZINE 10MG/2ML INJ ONE (23:48)
[2021-06-06 23:57] LABS: BASOPHILS % (AUTO) 0.7 % (0.0-5.0); EOSINOPHILS % (AUTO) 0.1 % (0.0-8.0); HEMATOCRIT 33.3 % (36-48); LYMPHOCYTES % (AUTO) 13.2 % (21.0-51.0); MEAN CORPUSCULAR HEMOGLOBIN 29.9 pg (27.0-33.0); MEAN CORPUSCULAR HGB CONC 34.5 g/dL (32.0-36.0); MEAN CORPUSCULAR VOLUME 86.7 fL (79-99); MONOCYTES % (AUTO) 4.3 % (3.0-13.0); NEUTROPHILS % (AUTO) 81.2 % (40.0-77.0); PLATELET COUNT (AUTO) 448 K/uL (130-400); RED BLOOD CELL COUNT(AUTO) 3.84 MIL/uL (4.00-5.50); RED CELL DISTRIBUTION WIDTH 12.2 % (11.0-15.5); WHITE BLOOD COUNT (AUTO) 13.1 K/uL (4.8-10.8)
[2021-06-07] MEDS ORDERED: PROCHLORPERAZINE EDISYLATE 5 MG/ML 2 ML VIAL IVP ONE
[2021-06-07] MEDS ORDERED: HYDRALAZINE 20MG/ML VIAL IV SCH
[2021-06-07 00:10] LABS: INR 0.94 (0.85-1.15); PROTHROMBIN TIME 10.3 SEC (9.6-11.6)
[2021-06-07 00:15] LABS: ALBUMIN 1.7 g/dL (3.5-5.0); BILIRUBIN,TOTAL 0.3 mg/dL (0.2-1.0); CREATININE 3.1 mg/dL (0.5-1.5); TOTAL PROTEIN, SERUM 6.2 g/dL (6.0-8.3)
[2021-06-07 00:25] LABS: POTASSIUM 2.7 mmol/L (3.5-5.1)
[2021-06-07 00:29] LABS: APPEARANCE,URINE Cloudy (CLEAR); BILIRUBIN,URINE Negative (NEGATIVE); COLOR,URINE Yellow (YELLOW); GLUCOSE, URINE (UA) >=1000 mg/dL (NEGATIVE); KETONES,URINE 40 mg/dL (NEGATIVE); LEUKOCYTE ESTERASE ,URINE Negative (NEGATIVE); NITRATE,URINE Negative (NEGATIVE); OCCULT BLOOD,URINE Large (NEGATIVE); PROTEIN,URINE >=1000 mg/dL (NEGATIVE); UROBILINOGEN,URINE 0.2 mg/dL (0.2-1.0)
[2021-06-07] MEDS ORDERED: 0.9%NACL 1000ML 1,000 ML IV ONE (00:30)
[2021-06-07 00:34] LABS: ABG BASE EXCESS -5.1 mmol/L (-2.0-3.0); ABG OXYGEN SATURATION 95.1 % (95.0-99.0); ABG PCO2 33 mmHg (32-45)
[2021-06-07 00:37] LABS: AMPHET/METH SCREEN,URINE NEGATIVE (NEGATIVE); BARBITURATE SCREEN, URINE NEGATIVE (NEGATIVE); BENZODIAZEPINES SCREEN,URINE NEGATIVE (NEGATIVE); CANNABINOID SCREEN,URINE NEGATIVE (NEGATIVE); COCAINE SCREEN,URINE NEGATIVE (NEGATIVE); OPIATE SCREEN,URINE NEGATIVE (NEGATIVE); PHENCYCLIDINE SCREEN,URINE NEGATIVE (NEGATIVE)
[2021-06-07 00:42] LABS: BACTERIA,URINE Many /HPF (None Seen)
[2021-06-07 00:43] LABS: SQUAMOUS EPITHELIAL CELL,UR 0-2 /HPF (0-2)
[2021-06-07] MEDS ORDERED: INSULIN HUMULIN R 100 UNIT/ML 3ML ONE (01:38)
[2021-06-07] MEDS ORDERED: POTASSIUM CHLORIDE 10MEQ/100ML 100 ML IV ONE (01:44)
[2021-06-07] MEDS ORDERED: LIDOCAINE HCL-MPF 1% 2ML VIAL ONE (01:44)
[2021-06-07] MEDS ORDERED: PROCHLORPERAZINE 10MG/2ML INJ ONE (05:26)
[2021-06-07] MEDS ORDERED: LIDOCAINE HCL-MPF 1% 2ML VIAL IV PRN (06:00)
[2021-06-07] MEDS ORDERED: POTASSIUM CHLORIDE 20MEQ/100ML 100 ML IV PRN (06:00)
[2021-06-07 07:06] LABS: BASOPHILS % (AUTO) 0.5 % (0.0-5.0); EOSINOPHILS % (AUTO) 0.1 % (0.0-8.0); HEMATOCRIT 28.7 % (36-48); LYMPHOCYTES % (AUTO) 10.4 % (21.0-51.0); MEAN CORPUSCULAR HGB CONC 34.8 g/dL (32.0-36.0); MEAN CORPUSCULAR VOLUME 86.2 fL (79-99); MONOCYTES % (AUTO) 4.8 % (3.0-13.0); NEUTROPHILS % (AUTO) 83.7 % (40.0-77.0); PLATELET COUNT (AUTO) 372 K/uL (130-400); RED BLOOD CELL COUNT(AUTO) 3.33 MIL/uL (4.00-5.50); RED CELL DISTRIBUTION WIDTH 12.3 % (11.0-15.5)
[2021-06-07 07:21] LABS: CREATININE 2.8 mg/dL (0.5-1.5); PHOSPHORUS 4.1 mg/dL (2.5-4.9)
[2021-06-07 07:27] LABS: POTASSIUM 2.8 mmol/L (3.5-5.1)
[2021-06-07 07:31] LABS: MAGNESIUM 2.2 mg/dL (1.80-2.40); THYROID STIMULATING HORMONE 3.28 uIU/mL (0.36-3.74)
[2021-06-07] MEDS ORDERED: ENOXAPARIN SODIUM 1 MG/KG SQ SCH (09:00)
[2021-06-07] MEDS ORDERED: D5W-1/2 NS/20MEQ KCL 1,000 ML IV SCH (09:00)
[2021-06-07] MEDS ORDERED: PROMETHAZINE HCL 25 MG/ML 1ML AMPULE IM PRN (09:00)
[2021-06-07] MEDS ORDERED: ONDANSETRON 4MG INJ IVP PRN (09:00)
[2021-06-07] MEDS ORDERED: ENOXAPARIN SODIUM 80 MG/0.8 ML SQ SCH (09:00)
[2021-06-07] MEDS: KCL 20 MEQ ERTAB PO SCH (09:04)
[2021-06-07 10:27] LABS: ABG BASE EXCESS -2.3 mmol/L (-2.0-3.0); ABG HCO3 21.3 mmol/L (21.0-28.0); ABG OXYGEN SATURATION 97.2 % (95.0-99.0); ABG PCO2 33 mmHg (32-45)
[2021-06-07] MEDS: POTASSIUM CHLORIDE 10MEQ/100ML 10 MEQ/100 ML ML IV SCH (10:58)
[2021-06-07] MEDS ORDERED: NITROGLYCERIN 0.4 MG SL TAB SL PRN (13:30)
[2021-06-07 13:59] LABS: CREATININE 2.8 mg/dL (0.5-1.5); POTASSIUM 3.5 mmol/L (3.5-5.1)
[2021-06-07 14:13] LABS: ABG BASE EXCESS -2.5 mmol/L (-2.0-3.0); ABG HCO3 21.7 mmol/L (21.0-28.0); ABG OXYGEN SATURATION 96.6 % (95.0-99.0); ABG PCO2 36 mmHg (32-45)
[2021-06-07] MEDS: INSULIN GLARGINE 100 UNITS/ML 10 ML VIAL SQ SCH ×2 (15:38→16:27)
[2021-06-07 16:06] LABS: HEMOGLOBIN A1C 11.1 % (4.0-6.0)
[2021-06-07] MEDS ORDERED: TICAGRELOR 90 MG TABLET PO SCH (16:30)
[2021-06-07] MEDS: ASPIRIN 81 MG EC TAB PO SCH (17:29)
[2021-06-07] MEDS: INSULIN HUMULIN R 100 UNIT/ML 3ML SQ SCH ×2 (17:30→20:59)
[2021-06-07] MEDS: PANTOPRAZOLE 40 MG/VIAL IVP SCH (20:58)
[2021-06-07] MEDS: TICAGRELOR 90 MG TABLET PO SCH (20:58)
[2021-06-07] MEDS: ATORVASTATIN 40 MG TABLET PO SCH (20:58)
[2021-06-07] MEDS: ENOXAPARIN SODIUM 80 MG/0.8 ML SQ SCH (20:59)
[2021-06-07] MEDS ORDERED: METOPROLOL TARTRATE 25 MG TAB PO SCH (21:00)
[2021-06-07] MEDS: METOPROLOL TARTRATE 25 MG TAB PO SCH (21:00)
[2021-06-07 23:30] VITALS: BP 142/88
[2021-06-08 04:00] VITALS: BP 142/79
[2021-06-08 04:25] LABS: HEMATOCRIT 31.5 % (36-48); MEAN CORPUSCULAR HEMOGLOBIN 29.2 pg (27.0-33.0); MEAN CORPUSCULAR HGB CONC 32.7 g/dL (32.0-36.0); MEAN CORPUSCULAR VOLUME 89.2 fL (79-99); RED BLOOD CELL COUNT(AUTO) 3.53 MIL/uL (4.00-5.50); RED CELL DISTRIBUTION WIDTH 12.9 % (11.0-15.5); WHITE BLOOD COUNT (AUTO) 11.9 K/uL (4.8-10.8)
[2021-06-08 05:00] LABS: ALBUMIN 1.4 g/dL (3.5-5.0); BILIRUBIN,TOTAL 0.1 mg/dL (0.2-1.0); CREATININE 2.6 mg/dL (0.5-1.5); POTASSIUM 3.2 mmol/L (3.5-5.1); TOTAL PROTEIN, SERUM 5.1 g/dL (6.0-8.3)
[2021-06-08] MEDS: INSULIN HUMULIN R 100 UNIT/ML 3ML SQ SCH ×4 (06:17→20:16)
[2021-06-08 08:00] VITALS: BP 144/86
[2021-06-08] MEDS: KCL 20 MEQ ERTAB PO SCH (08:02)
[2021-06-08] MEDS: POTASSIUM CHLORIDE 10MEQ/100ML 10 MEQ/100 ML ML IV SCH (08:03)
[2021-06-08] MEDS: METOPROLOL TARTRATE 25 MG TAB PO SCH ×2 (09:24→19:40)
[2021-06-08] MEDS: TICAGRELOR 90 MG TABLET PO SCH ×2 (09:24→19:40)
[2021-06-08] MEDS: PANTOPRAZOLE 40 MG/VIAL IVP SCH ×2 (09:24→19:39)
[2021-06-08] MEDS: LEVOFLOXACIN 500 MG TABLET PO SCH (09:25)
[2021-06-08] MEDS: ASPIRIN 81 MG EC TAB PO SCH (09:25)
[2021-06-08] MEDS: ENOXAPARIN SODIUM 80 MG/0.8 ML SQ SCH ×2 (09:25→19:42)
[2021-06-08] MEDS ORDERED: ACETAMINOPHEN 325 MG TAB ONE (09:26)
[2021-06-08] MEDS: AMLODIPINE-BENAZEPRIL 5-10 MG PO SCH (09:27)
[2021-06-08 11:00] VITALS: BP 148/91
[2021-06-08 16:00] VITALS: BP 120/72
[2021-06-08] MEDS: ATORVASTATIN 40 MG TABLET PO SCH (19:40)
[2021-06-08 19:58] VITALS: BP 147/88
[2021-06-08] MEDS: INSULIN GLARGINE 100 UNITS/ML 10 ML VIAL SQ SCH (20:22)
[2021-06-08 22:50] VITALS: BP 160/93
[2021-06-09] VITALS (7 sets, daily range): BP systolic 131–184; BP diastolic 76–100
[2021-06-09 04:19] LABS: HEMATOCRIT 31.3 % (36-48); MEAN CORPUSCULAR HEMOGLOBIN 28.9 pg (27.0-33.0); MEAN CORPUSCULAR HGB CONC 32.3 g/dL (32.0-36.0); MEAN CORPUSCULAR VOLUME 89.4 fL (79-99); RED BLOOD CELL COUNT(AUTO) 3.5 MIL/uL (4.00-5.50); RED CELL DISTRIBUTION WIDTH 12.8 % (11.0-15.5)
[2021-06-09 04:27] LABS: CREATININE 2.4 mg/dL (0.5-1.5); POTASSIUM 3.1 mmol/L (3.5-5.1)
[2021-06-09] MEDS: INSULIN HUMULIN R 100 UNIT/ML 3ML SQ SCH ×4 (06:16→20:26)
[2021-06-09] MEDS ORDERED: REGADENOSON 0.4 MG/5 ML PF SYG IVP SCH (07:30)
[2021-06-09] MEDS: METOPROLOL TARTRATE 25 MG TAB PO SCH ×2 (08:47→21:23)
[2021-06-09] MEDS: HYDRALAZINE 20MG/ML VIAL IM PRN (08:50)
[2021-06-09] MEDS: AMLODIPINE-BENAZEPRIL 5-10 MG PO SCH (08:51)
[2021-06-09] MEDS: KCL 20 MEQ ERTAB PO SCH ×2 (09:00→12:38)
[2021-06-09] MEDS: POTASSIUM CHLORIDE 10MEQ/100ML 10 MEQ/100 ML ML IV SCH (11:00)
[2021-06-09] MEDS: TICAGRELOR 90 MG TABLET PO SCH ×2 (11:49→21:23)
[2021-06-09] MEDS: ASPIRIN 81 MG EC TAB PO SCH (11:50)
[2021-06-09] MEDS: PANTOPRAZOLE 40 MG/VIAL IVP SCH ×2 (11:50→21:22)
[2021-06-09] MEDS: ENOXAPARIN SODIUM 80 MG/0.8 ML SQ SCH ×2 (11:50→21:24)
[2021-06-09] MEDS: ACETAMINOPHEN 325 MG TAB PO PRN (13:22)
[2021-06-09] MEDS: INSULIN GLARGINE 100 UNITS/ML 10 ML VIAL SQ SCH (20:24)
[2021-06-09] MEDS: ATORVASTATIN 40 MG TABLET PO SCH (21:23)
[2021-06-09] MEDS ORDERED: DEXTROSE 50%-WATER 50 ML DISP.SYRIN IV ONE (23:57)
[2021-06-10] MEDS ORDERED: DEXTROSE 50%-WATER 50 ML DISP.SYRIN IV PRN (00:30)
[2021-06-10] MEDS ORDERED: GLUCAGON 1MG KIT 1 MG ML IM PRN (00:30)
[2021-06-10 03:59] VITALS: BP 146/79
[2021-06-10 04:29] LABS: HEMATOCRIT 31.6 % (36-48); MEAN CORPUSCULAR HEMOGLOBIN 28.9 pg (27.0-33.0); MEAN CORPUSCULAR VOLUME 90.3 fL (79-99); PLATELET COUNT (AUTO) 296 K/uL (130-400); RED CELL DISTRIBUTION WIDTH 12.6 % (11.0-15.5); WHITE BLOOD COUNT (AUTO) 5.8 K/uL (4.8-10.8)
[2021-06-10 04:55] LABS: ALBUMIN 1.5 g/dL (3.5-5.0); BILIRUBIN,TOTAL 0.1 mg/dL (0.2-1.0); CREATININE 1.8 mg/dL (0.5-1.5); POTASSIUM 3.4 mmol/L (3.5-5.1); TOTAL PROTEIN, SERUM 5.3 g/dL (6.0-8.3)
[2021-06-10 05:02] LABS: BASOPHILS % (MANUAL) 4 % (0-2); LYMPHOCYTES % (MANUAL) 8 % (22-44); MAN.DIFF COMMENT-IMPRESSION MANUAL DIFFERENTIAL; MONOCYTES % (MANUAL) 8 % (2-9); PLATELET MORPHOLOGY COMMENT ADEQUATE; SEGMENTED NEUTROPHILS % 80 % (40-70)
[2021-06-10] MEDS: ACETAMINOPHEN 325 MG TAB PO PRN (06:00)
[2021-06-10] MEDS: INSULIN HUMULIN R 100 UNIT/ML 3ML SQ SCH ×4 (06:26→21:19)
[2021-06-10 07:00] VITALS: BP 160/90
[2021-06-10] MEDS ORDERED: KCL 20 MEQ ERTAB PO SCH (07:30)
[2021-06-10] MEDS: METOPROLOL TARTRATE 25 MG TAB PO SCH ×2 (08:43→21:17)
[2021-06-10] MEDS: ASPIRIN 81 MG EC TAB PO SCH (08:43)
[2021-06-10] MEDS: AMLODIPINE-BENAZEPRIL 5-10 MG PO SCH (08:43)
[2021-06-10] MEDS: LEVOFLOXACIN 500 MG TABLET PO SCH (08:43)
[2021-06-10] MEDS: TICAGRELOR 90 MG TABLET PO SCH ×2 (08:43→21:17)
[2021-06-10] MEDS: PANTOPRAZOLE 40 MG/VIAL IVP SCH ×2 (08:43→21:17)
[2021-06-10] MEDS: ENOXAPARIN SODIUM 80 MG/0.8 ML SQ SCH ×2 (08:44→21:20)
[2021-06-10] MEDS: POTASSIUM CHLORIDE 10MEQ/100ML 10 MEQ/100 ML ML IV SCH (08:51)
[2021-06-10] MEDS: KCL 20 MEQ ERTAB PO SCH ×2 (08:51→12:30)
[2021-06-10 11:00] VITALS: BP 185/86
[2021-06-10 16:00] VITALS: BP 139/91
[2021-06-10 20:49] VITALS: BP 130/90
[2021-06-10] MEDS: INSULIN GLARGINE 100 UNITS/ML 10 ML VIAL SQ SCH (21:20)
[2021-06-10] MEDS: ATORVASTATIN 40 MG TABLET PO SCH (21:21)
[2021-06-10 23:33] VITALS: BP 152/79
[2021-06-11 04:28] VITALS: BP 162/90
[2021-06-11] MEDS: HYDRALAZINE 20MG/ML VIAL IM PRN (04:38)
[2021-06-11 04:48] LABS: BASOPHILS % (AUTO) 1.1 % (0.0-5.0); EOSINOPHILS % (AUTO) 2.7 % (0.0-8.0); HEMATOCRIT 33.4 % (36-48); LYMPHOCYTES % (AUTO) 28.7 % (21.0-51.0); MEAN CORPUSCULAR HEMOGLOBIN 29.2 pg (27.0-33.0); MONOCYTES % (AUTO) 7.8 % (3.0-13.0); NEUTROPHILS % (AUTO) 59.3 % (40.0-77.0); PLATELET COUNT (AUTO) 288 K/uL (130-400); RED BLOOD CELL COUNT(AUTO) 3.67 MIL/uL (4.00-5.50); RED CELL DISTRIBUTION WIDTH 12.2 % (11.0-15.5); WHITE BLOOD COUNT (AUTO) 4.5 K/uL (4.8-10.8)
[2021-06-11 05:20] LABS: ALBUMIN 1.6 g/dL (3.5-5.0); BILIRUBIN,TOTAL 0.1 mg/dL (0.2-1.0); CREATININE 1.7 mg/dL (0.5-1.5); MAGNESIUM 1.8 mg/dL (1.80-2.40); POTASSIUM 3.3 mmol/L (3.5-5.1); TOTAL PROTEIN, SERUM 5.5 g/dL (6.0-8.3)
[2021-06-11] MEDS: INSULIN HUMULIN R 100 UNIT/ML 3ML SQ SCH ×3 (06:07→16:27)
[2021-06-11 08:00] VITALS: BP 165/96
[2021-06-11] MEDS: KCL 20 MEQ ERTAB PO SCH ×2 (09:00→10:12)
[2021-06-11] MEDS: TICAGRELOR 90 MG TABLET PO SCH (09:04)
[2021-06-11] MEDS: ASPIRIN 81 MG EC TAB PO SCH (09:04)
[2021-06-11] MEDS: METOPROLOL TARTRATE 25 MG TAB PO SCH (09:04)
[2021-06-11] MEDS: ENOXAPARIN SODIUM 80 MG/0.8 ML SQ SCH (09:08)
[2021-06-11] MEDS: PANTOPRAZOLE 40 MG/VIAL IVP SCH (09:08)
[2021-06-11] MEDS: AMLODIPINE-BENAZEPRIL 5-10 MG PO SCH (09:15)
[2021-06-11] MEDS: POTASSIUM CHLORIDE 10MEQ/100ML 10 MEQ/100 ML ML IV SCH (10:12)
[2021-06-11 11:57] VITALS: BP 160/97
[2021-06-11] MEDS ORDERED: LEVO500T90 PO (12:39)
[2021-06-11] MEDS ORDERED: POTASSIUM CHLORIDE 10MEQ SR TAB PO SCH (13:00)
[2021-06-11 16:00] VITALS: BP 142/75
== END 2021-06-11 17:40 | disposition home or self-care (01) | DRG 280 ==
LOC: EDH 21:59 → EDHIP 06-07 01:32 → OBSVTOIN 06-07 01:32 → INTOOBSV 06-07 01:32 → 4BH 06-07 23:33 → 4CH 06-07 23:37
PROVIDERS: ADMIT Internal Medicine Critical Care Medicine; ATTEND Internal Medicine Critical Care Medicine
DX: I21.4 Non-ST elevation (NSTEMI) myocardial infarction (principal); E10.10 Type 1 diabetes mellitus with ketoacidosis without coma; E43 Unspecified severe protein-calorie malnutrition; N18.4 Chronic kidney disease, stage 4 (severe); N39.0 Urinary tract infection, site not specified; I12.9 Hypertensive chronic kidney disease with stage 1 through stage 4 chronic kidney disease, or unspecified chronic kidney disease; E10.22 Type 1 diabetes mellitus with diabetic chronic kidney disease; E10.319 Type 1 diabetes mellitus with unspecified diabetic retinopathy without macular edema; E78.00 Pure hypercholesterolemia, unspecified; E78.5 Hyperlipidemia, unspecified; E87.6 Hypokalemia; H54.8 Legal blindness, as defined in USA; B96.1 Klebsiella pneumoniae [K. pneumoniae] as the cause of diseases classified elsewhere; Z68.31 Body mass index [BMI] 31.0-31.9, adult; Z88.0 Allergy status to penicillin; I25.2 Old myocardial infarction; Z79.4 Long term (current) use of insulin; Z79.899 Other long term (current) drug therapy; Z83.3 Family history of diabetes mellitus; Z82.49 Family history of ischemic heart disease and other diseases of the circulatory system
CPT/HCPCS: 36415; 36600; 71045; 78452; 80048; 80053; 80061; 80305; 81001; 81025; 82435; 82550; 82803; 82947; 82948; 83036; 83605; 83735; 83874; 84100; 84132; 84295; 84443; 84484; 85018; 85025; 85027; 85610; 87077; 87088; 87186; 93005; 93017; 93306; 93356; 96374; A9500; C9113; G0378; J0360; J0780; J1650; J1815; J2405; J2785; J3480; J3490; J7070; J7120

== ENCOUNTER 2021-07-22 17:36 | Inpatient (IN) | payer OTHER ==
[~2021-07-22] VITALS: Ht 160 cm; Wt 82.6 kg
[~2021-07-22 17:36] MED LIST changes: +LEVO500T90 PO
[2021-07-22 18:18] LABS: ABG BASE EXCESS -23.5 mmol/L (-2.0-3.0); ABG HCO3 3.6 mmol/L (21.0-28.0); ABG OXYGEN SATURATION 97.9 % (95.0-99.0); ABG PCO2 < 14 mmHg (32-45)
[2021-07-22] MEDS ORDERED: 0.9%NACL 1000ML 1,000 ML IV ONE ×2 (18:30)
[2021-07-22] MEDS ORDERED: INSULIN HUMULIN R 100 UNIT/ML 3ML ONE (18:34)
[2021-07-22 18:43] LABS: EOSINOPHILS % (AUTO) 0.1 % (0.0-8.0); HEMATOCRIT 38.4 % (36-48); LYMPHOCYTES % (AUTO) 7.8 % (21.0-51.0); MEAN CORPUSCULAR HEMOGLOBIN 29.7 pg (27.0-33.0); MEAN CORPUSCULAR HGB CONC 28.6 g/dL (32.0-36.0); MEAN CORPUSCULAR VOLUME 103.8 fL (79-99); MONOCYTES % (AUTO) 2.6 % (3.0-13.0); NEUTROPHILS % (AUTO) 87.5 % (40.0-77.0); PLATELET COUNT (AUTO) 302 K/uL (130-400); RED CELL DISTRIBUTION WIDTH 12.2 % (11.0-15.5); WHITE BLOOD COUNT (AUTO) 19.6 K/uL (4.8-10.8)
[2021-07-22 18:47] LABS: APPEARANCE,URINE Cloudy (CLEAR); BILIRUBIN,URINE Negative (NEGATIVE); COLOR,URINE Yellow (YELLOW); GLUCOSE, URINE (UA) >=1000 mg/dL (NEGATIVE); KETONES,URINE >=160 mg/dL (NEGATIVE); LEUKOCYTE ESTERASE ,URINE Negative (NEGATIVE); NITRATE,URINE Negative (NEGATIVE); OCCULT BLOOD,URINE Small (NEGATIVE); PROTEIN,URINE 300 mg/dL (NEGATIVE); UROBILINOGEN,URINE 0.2 mg/dL (0.2-1.0)
[2021-07-22 18:55] LABS: AMPHET/METH SCREEN,URINE NEGATIVE (NEGATIVE); BACTERIA,URINE Few /HPF (None Seen); BARBITURATE SCREEN, URINE NEGATIVE (NEGATIVE); BENZODIAZEPINES SCREEN,URINE NEGATIVE (NEGATIVE); CANNABINOID SCREEN,URINE NEGATIVE (NEGATIVE); COCAINE SCREEN,URINE NEGATIVE (NEGATIVE); MUCUS,URINE Few LPF (None Seen); OPIATE SCREEN,URINE NEGATIVE (NEGATIVE); PHENCYCLIDINE SCREEN,URINE NEGATIVE (NEGATIVE); SQUAMOUS EPITHELIAL CELL,UR Few /HPF (0-2); WBC,URINE 0-1 /HPF (0-1)
[2021-07-22] MEDS ORDERED: PROMETHAZINE HCL 25 MG/ML 1ML AMPULE IM ONE (19:00)
[2021-07-22] MEDS ORDERED: INSULIN HUMULIN R 100 UNIT/ML 3ML SQ ONE (19:00)
[2021-07-22 19:05] LABS: B-TYPE NATRIURETIC PEPTIDE 115 pg/mL (0-100)
[2021-07-22 19:07] LABS: ALBUMIN 2.3 g/dL (3.5-5.0); BILIRUBIN,TOTAL 0.6 mg/dL (0.2-1.0); CREATININE 3.4 mg/dL (0.5-1.5); CRP QUANTITATIVE 18.1 mg/L (0.00-9.0); POTASSIUM 4.8 mmol/L (3.5-5.1); TOTAL PROTEIN, SERUM 6.5 g/dL (6.0-8.3)
[2021-07-22] MEDS ORDERED: MORPHINE 2 MG SYG IVP ONE (19:30)
[2021-07-22] MEDS ORDERED: DiphenhydrAMINE HCL 50 MG/ML VIAL IV ONE (19:30)
[2021-07-22] MEDS ORDERED: DiphenhydrAMINE HCL 50 MG/ML VIAL ONE (19:48)
[2021-07-22] MEDS ORDERED: MORPHINE 2 MG SYG ONE (19:48)
[2021-07-22] MEDS ORDERED: DEXTROSE 5 %-0.45 % NACL 1,000 ML IV PRN (20:30)
[2021-07-22] MEDS ORDERED: INSULIN REGULAR, HUMAN 3ML 100 UNIT in 0.9%NACL 100ML 99 ML IV PRN ×2 (21:00)
[2021-07-22] MEDS: 0.9%NACL 1000ML 1,000 ML IV SCH (21:10)
[2021-07-22] MEDS ORDERED: NITROGLYCERIN 0.4 MG SL TAB SL PRN (21:30)
[2021-07-22] MEDS ORDERED: MAG/ALUM/SIMETH 30 ML UDCUP PO PRN (21:30)
[2021-07-22] MEDS ORDERED: LACTULOSE 20 GM/30 ML UDCUP PO PRN (21:30)
[2021-07-22] MEDS ORDERED: ALBUTEROL 0.083% 2.5 MG/3 ML INH IH PRN (21:30)
[2021-07-22] MEDS ORDERED: ONDANSETRON 4MG INJ IV PRN (21:30)
[2021-07-22] MEDS ORDERED: GUAIFENESIN-DM 200/20 MG 10 ML PO PRN (21:30)
[2021-07-22] MEDS ORDERED: ZOLPIDEM TARTRATE 5 MG TAB PO PRN (21:30)
[2021-07-22] MEDS ORDERED: ACETAMINOPHEN 325 MG TAB PO PRN ×2 (21:30)
[2021-07-22] MEDS ORDERED: PROMETHAZINE HCL 25 MG/ML 1ML AMPULE IM PRN (21:30)
[2021-07-22] MEDS ORDERED: MORPHINE 2 MG SYG IV PRN (21:30)
[2021-07-22] MEDS ORDERED: SODIUM BICARB 8.4% 50ML SYRINGE IVP STA (21:35)
[2021-07-22] MEDS ORDERED: THIAMINE HCL 100 MG/ML 2ML VIAL ONE (21:42)
[2021-07-22] MEDS ORDERED: M.V.I. IV [ADULT] 10 ML VIAL IV ONE (21:42)
[2021-07-22] MEDS ORDERED: SODIUM BICARB 50MEQ 50ML VIAL 50 ML ONE ×2 (22:10→22:38)
[2021-07-22] MEDS ORDERED: SODIUM BICARB 50MEQ 50ML VIAL 150 ML ONE (22:11)
[2021-07-22] MEDS ORDERED: SODIUM BICARB 50MEQ 50ML VIAL 100 ML ONE (22:32)
[2021-07-23 00:42] LABS: ABG BASE EXCESS -8.5 mmol/L (-2.0-3.0); ABG HCO3 14.4 mmol/L (21.0-28.0); ABG OXYGEN SATURATION 97.7 % (95.0-99.0); ABG PCO2 25 mmHg (32-45)
[2021-07-23] MEDS ORDERED: LABETALOL 20MG VIAL IV PRN (01:30)
[2021-07-23] MEDS: 0.9%NACL 1000ML 1,000 ML IV SCH ×2 (01:35→07:18)
[2021-07-23] MEDS: MEROPENEM 500 MG VIAL IVP SCH ×3 (01:35→16:41)
[2021-07-23 03:53] LABS: ABG BASE EXCESS 0.9 mmol/L (-2.0-3.0); ABG HCO3 24.5 mmol/L (21.0-28.0); ABG OXYGEN SATURATION 96.3 % (95.0-99.0); ABG PCO2 35 mmHg (32-45)
[2021-07-23 07:06] LABS: BASOPHILS % (AUTO) 0.4 % (0.0-5.0); EOSINOPHILS % (AUTO) 0.1 % (0.0-8.0); HEMATOCRIT 28.1 % (36-48); LYMPHOCYTES % (AUTO) 19.1 % (21.0-51.0); MEAN CORPUSCULAR HGB CONC 33.5 g/dL (32.0-36.0); MEAN CORPUSCULAR VOLUME 86.7 fL (79-99); MONOCYTES % (AUTO) 7.7 % (3.0-13.0); NEUTROPHILS % (AUTO) 71.8 % (40.0-77.0); PLATELET COUNT (AUTO) 240 K/uL (130-400); RED BLOOD CELL COUNT(AUTO) 3.24 MIL/uL (4.00-5.50); RED CELL DISTRIBUTION WIDTH 12.1 % (11.0-15.5); WHITE BLOOD COUNT (AUTO) 10.6 K/uL (4.8-10.8)
[2021-07-23 07:14] LABS: CREATININE 2.7 mg/dL (0.5-1.5)
[2021-07-23] MEDS: POTASSIUM CHLORIDE 10MEQ/100ML 100 ML IV PRN ×2 (07:18→15:27)
[2021-07-23 07:19] LABS: POTASSIUM 2.8 mmol/L (3.5-5.1)
[2021-07-23 07:36] LABS: HEMOGLOBIN A1C 10.5 % (4.0-6.0)
[2021-07-23] MEDS ORDERED: SODIUM BICARB 8.4% 50ML SYRING 150 MEQ in 0.9%NACL 1000ML 1,000 ML IVP SCH (08:00)
[2021-07-23 08:19] LABS: ABG BASE EXCESS 6.8 mmol/L (-2.0-3.0); ABG OXYGEN SATURATION 94.3 % (95.0-99.0); ABG PCO2 43 mmHg (32-45)
[2021-07-23] MEDS ORDERED: M.V.I. IV [ADULT] 10 ML, FOLIC ACID 1 MG, THIAMINE HCL 100 MG in 0.9%NACL 1000ML 1,000 ML IV SCH (09:00)
[2021-07-23 09:14] LABS: CHOLESTEROL 162 mg/dL (<200); HDL CHOLESTEROL 62 mg/dL (35-85); LDL DIRECT 73 mg/dL (0-99); TRIGLYCERIDES 110 mg/dL (30-200)
[2021-07-23] MEDS: PANTOPRAZOLE 40 MG/VIAL IVP SCH ×2 (09:26→20:49)
[2021-07-23] MEDS: METOPROLOL TARTRATE 25 MG TAB PO SCH (09:26)
[2021-07-23] MEDS: AMLODIPINE 5 MG TAB PO SCH (09:26)
[2021-07-23] MEDS: ASPIRIN 81MG CHEW TAB PO SCH (09:26)
[2021-07-23 09:34] LABS: LIPASE 2959 U/L (114-286)
[2021-07-23] MEDS: ENOXAPARIN SODIUM 30 MG/0.3 ML SQ SCH (09:35)
[2021-07-23 10:14] LABS: CREATININE 2.7 mg/dL (0.5-1.5)
[2021-07-23 10:20] LABS: POTASSIUM 2.8 mmol/L (3.5-5.1)
[2021-07-23] MEDS ORDERED: INSULIN LISPRO 100 UNIT/ML 3ML SQ SCH (12:00)
[2021-07-23] MEDS: INSULIN HUMULIN 70/30 100 UNIT/ML 3ML SQ SCH (12:34)
[2021-07-23] MEDS: METOCLOPRAMIDE 10 MG/2 ML VIAL IVP SCH ×3 (13:08→20:49)
[2021-07-23 14:52] LABS: CREATININE 2.8 mg/dL (0.5-1.5)
[2021-07-23 15:00] LABS: POTASSIUM 2.9 mmol/L (3.5-5.1)
[2021-07-23 15:20] LABS: ALBUMIN 1.8 g/dL (3.5-5.0); BILIRUBIN,TOTAL 0.3 mg/dL (0.2-1.0); TOTAL PROTEIN, SERUM 4.9 g/dL (6.0-8.3)
[2021-07-23] MEDS: HUMALOG PO SS1 SQ SCH ×3 (16:41→23:29)
[2021-07-23] MEDS ORDERED: INSULIN HUMULIN 70/30 100 UNIT/ML 3ML SQ SCH (17:00)
[2021-07-23 18:12] LABS: CREATININE 2.8 mg/dL (0.5-1.5)
[2021-07-23] MEDS: LIDOCAINE HCL-MPF 1% 2ML VIAL IV PRN (18:47)
[2021-07-23] MEDS: POTASSIUM CHLORIDE 20MEQ/100ML 100 ML IV PRN (18:47)
[2021-07-23] MEDS ORDERED: INSULIN GLARGINE 100 UNITS/ML 10 ML VIAL SQ SCH ×2 (21:00)
[2021-07-23] MEDS ORDERED: AMLODIPINE 5 MG TAB PO SCH (21:00)
[2021-07-23] MEDS ORDERED: CHLORDIAZEPOXIDE HCL 25 MG CAP PO PRN (21:30)
[2021-07-23 23:27] LABS: CREATININE 2.8 mg/dL (0.5-1.5); POTASSIUM 3.1 mmol/L (3.5-5.1)
[2021-07-24] VITALS: BP 130/76
[2021-07-24] MEDS: ATORVASTATIN 40 MG TABLET PO SCH ×2 (00:31→20:17)
[2021-07-24] MEDS: METOPROLOL TARTRATE 25 MG TAB PO SCH ×3 (00:31→20:17)
[2021-07-24] MEDS: MEROPENEM 500 MG VIAL IVP SCH ×3 (00:31→16:11)
[2021-07-24 03:47] VITALS: BP 133/84
[2021-07-24] MEDS: HUMALOG PO SS1 SQ SCH ×5 (04:00→20:00)
[2021-07-24 04:42] LABS: BASOPHILS % (AUTO) 0.6 % (0.0-5.0); EOSINOPHILS % (AUTO) 0.7 % (0.0-8.0); HEMATOCRIT 27.3 % (36-48); LYMPHOCYTES % (AUTO) 21.6 % (21.0-51.0); MEAN CORPUSCULAR HEMOGLOBIN 29.4 pg (27.0-33.0); MEAN CORPUSCULAR HGB CONC 33.3 g/dL (32.0-36.0); MEAN CORPUSCULAR VOLUME 88.3 fL (79-99); MONOCYTES % (AUTO) 5.7 % (3.0-13.0); NEUTROPHILS % (AUTO) 70.6 % (40.0-77.0); PLATELET COUNT (AUTO) 204 K/uL (130-400); RED BLOOD CELL COUNT(AUTO) 3.09 MIL/uL (4.00-5.50); RED CELL DISTRIBUTION WIDTH 12.9 % (11.0-15.5); WHITE BLOOD COUNT (AUTO) 14.1 K/uL (4.8-10.8)
[2021-07-24 05:03] LABS: ALBUMIN 1.7 g/dL (3.5-5.0); BILIRUBIN,TOTAL 0.2 mg/dL (0.2-1.0); CREATININE 2.5 mg/dL (0.5-1.5); POTASSIUM 4.4 mmol/L (3.5-5.1); TOTAL PROTEIN, SERUM 5.2 g/dL (6.0-8.3)
[2021-07-24 08:04] VITALS: BP 151/93
[2021-07-24] MEDS: METOCLOPRAMIDE 10 MG/2 ML VIAL IVP SCH ×4 (08:51→20:17)
[2021-07-24] MEDS: ENOXAPARIN SODIUM 30 MG/0.3 ML SQ SCH (08:52)
[2021-07-24] MEDS: AMLODIPINE 5 MG TAB PO SCH (08:53)
[2021-07-24] MEDS: ASPIRIN 81MG CHEW TAB PO SCH (08:53)
[2021-07-24] MEDS: PANTOPRAZOLE 40 MG/VIAL IVP SCH ×2 (08:53→20:17)
[2021-07-24] MEDS: INSULIN HUMULIN 70/30 100 UNIT/ML 3ML SQ SCH (08:57)
[2021-07-24 10:56] LABS: CREATININE 2.6 mg/dL (0.5-1.5)
[2021-07-24 11:51] VITALS: BP 111/68
[2021-07-24] MEDS: DEXTROSE 50%-WATER 50 ML DISP.SYRIN IV PRN ×3 (14:01→16:03)
[2021-07-24] MEDS: M.V.I. IV [ADULT] 10 ML, THIAMINE HCL 100 MG in 0.9%NACL 1000ML 1,000 ML IV SCH (14:18)
[2021-07-24 14:25] LABS: CREATININE 2.5 mg/dL (0.5-1.5)
[2021-07-24 14:34] LABS: POTASSIUM 2.5 mmol/L (3.5-5.1)
[2021-07-24] MEDS: POTASSIUM CHLORIDE 20MEQ/100ML 100 ML IV PRN ×2 (14:51→18:24)
[2021-07-24 16:00] VITALS: BP 114/70
[2021-07-24] MEDS ORDERED: SOLU-MEDROL 125MG VIAL IM SCH (16:00)
[2021-07-24] MEDS ORDERED: SOLU-MEDROL 125MG VIAL ONE (16:02)
[2021-07-24] MEDS ORDERED: DEXTROSE 10%-WATER 1,000 ML IV ONE (16:09)
[2021-07-24] MEDS: LIDOCAINE HCL-MPF 1% 2ML VIAL IV PRN ×2 (16:11→18:24)
[2021-07-24] MEDS ORDERED: NACL 23.4% (4MEQ/ML) 30ML VIAL 154 MEQ in DEXTROSE 10%-WATER 961.5 ML IV SCH (16:30)
[2021-07-24] MEDS: DEXTROSE 10%-WATER 1,000 ML IV SCH (16:57)
[2021-07-24 17:57] LABS: CREATININE 2.4 mg/dL (0.5-1.5); POTASSIUM 3.1 mmol/L (3.5-5.1)
[2021-07-24 19:13] VITALS: BP 141/73
[2021-07-24 22:13] LABS: CREATININE 2.4 mg/dL (0.5-1.5); POTASSIUM 3.7 mmol/L (3.5-5.1)
[2021-07-25] VITALS (7 sets, daily range): BP systolic 105–144; BP diastolic 62–87
[2021-07-25] MEDS: HUMALOG PO SS1 SQ SCH ×5 (00:16→17:04)
[2021-07-25 04:25] LABS: BASOPHILS % (AUTO) 0.1 % (0.0-5.0); HEMATOCRIT 29.9 % (36-48); LYMPHOCYTES % (AUTO) 11.6 % (21.0-51.0); MEAN CORPUSCULAR HEMOGLOBIN 29.2 pg (27.0-33.0); MEAN CORPUSCULAR HGB CONC 33.4 g/dL (32.0-36.0); MEAN CORPUSCULAR VOLUME 87.2 fL (79-99); NEUTROPHILS % (AUTO) 86.6 % (40.0-77.0); PLATELET COUNT (AUTO) 115 K/uL (130-400); RED BLOOD CELL COUNT(AUTO) 3.43 MIL/uL (4.00-5.50); RED CELL DISTRIBUTION WIDTH 12.6 % (11.0-15.5); WHITE BLOOD COUNT (AUTO) 8.7 K/uL (4.8-10.8)
[2021-07-25 04:42] LABS: ALBUMIN 1.9 g/dL (3.5-5.0); BILIRUBIN,TOTAL 0.1 mg/dL (0.2-1.0); CREATININE 2.2 mg/dL (0.5-1.5); POTASSIUM 3.7 mmol/L (3.5-5.1); TOTAL PROTEIN, SERUM 5.6 g/dL (6.0-8.3)
[2021-07-25] MEDS: METOCLOPRAMIDE 10 MG/2 ML VIAL IVP SCH ×4 (07:30→20:27)
[2021-07-25 09:19] LABS: PROTEIN,URINE RANDOM 480.3 mg/dL (0-11.9)
[2021-07-25] MEDS: MEROPENEM 500 MG VIAL IVP SCH ×3 (10:16→17:00)
[2021-07-25] MEDS: PANTOPRAZOLE 40 MG/VIAL IVP SCH ×2 (10:16→20:26)
[2021-07-25] MEDS: ASPIRIN 81MG CHEW TAB PO SCH (10:16)
[2021-07-25] MEDS: ENOXAPARIN SODIUM 30 MG/0.3 ML SQ SCH (10:17)
[2021-07-25] MEDS: METOPROLOL TARTRATE 25 MG TAB PO SCH ×2 (10:17→20:26)
[2021-07-25] MEDS: AMLODIPINE 5 MG TAB PO SCH (10:17)
[2021-07-25] MEDS: DEXTROSE 10%-WATER 1,000 ML IV SCH (14:18)
[2021-07-25] MEDS: ATORVASTATIN 40 MG TABLET PO SCH (20:26)
[2021-07-25] MEDS: INSULIN HUMULIN R 100 UNIT/ML 3ML SQ SCH (20:27)
[2021-07-26] MEDS: MEROPENEM 500 MG VIAL IVP SCH ×3 (00:28→16:50)
[2021-07-26 04:22] VITALS: BP 137/76
[2021-07-26 04:30] LABS: HEMATOCRIT 29.2 % (36-48); MEAN CORPUSCULAR HEMOGLOBIN 28.8 pg (27.0-33.0); MEAN CORPUSCULAR HGB CONC 32.2 g/dL (32.0-36.0); MEAN CORPUSCULAR VOLUME 89.6 fL (79-99); RED BLOOD CELL COUNT(AUTO) 3.26 MIL/uL (4.00-5.50); RED CELL DISTRIBUTION WIDTH 12.4 % (11.0-15.5); WHITE BLOOD COUNT (AUTO) 9.9 K/uL (4.8-10.8)
[2021-07-26 04:44] LABS: % IRON SATURATION 27.3 % (22-44)
[2021-07-26 04:53] LABS: ALBUMIN 1.7 g/dL (3.5-5.0); BILIRUBIN,TOTAL 0.2 mg/dL (0.2-1.0); CREATININE 2.2 mg/dL (0.5-1.5); POTASSIUM 3.8 mmol/L (3.5-5.1); TOTAL PROTEIN, SERUM 5.1 g/dL (6.0-8.3)
[2021-07-26] MEDS: INSULIN HUMULIN R 100 UNIT/ML 3ML SQ SCH ×5 (06:05→20:50)
[2021-07-26] MEDS ORDERED: INSULIN HUMULIN R 100 UNIT/ML 3ML SQ SCH ×3 (06:49→16:30)
[2021-07-26] MEDS ORDERED: INSULIN GLARGINE 100 UNITS/ML 10 ML VIAL SQ SCH (07:00)
[2021-07-26 08:00] VITALS: BP 144/63
[2021-07-26] MEDS: METOCLOPRAMIDE 10 MG/2 ML VIAL IVP SCH ×4 (08:32→20:34)
[2021-07-26] MEDS: PANTOPRAZOLE 40 MG/VIAL IVP SCH ×2 (08:33→20:34)
[2021-07-26] MEDS: ENOXAPARIN SODIUM 30 MG/0.3 ML SQ SCH (08:35)
[2021-07-26] MEDS: AMLODIPINE 5 MG TAB PO SCH (08:35)
[2021-07-26] MEDS: ASPIRIN 81MG CHEW TAB PO SCH (08:36)
[2021-07-26] MEDS: METOPROLOL TARTRATE 25 MG TAB PO SCH ×2 (08:36→20:34)
[2021-07-26] MEDS: M.V.I. IV [ADULT] 10 ML, THIAMINE HCL 100 MG in 0.9%NACL 1000ML 1,000 ML IV SCH (09:00)
[2021-07-26 12:00] VITALS: BP 138/78
[2021-07-26 16:00] VITALS: BP 114/63
[2021-07-26] MEDS: DEXTROSE 10%-WATER 1,000 ML IV SCH (16:50)
[2021-07-26 20:00] VITALS: BP 156/77
[2021-07-26] MEDS: ATORVASTATIN 40 MG TABLET PO SCH (20:34)
[2021-07-27] VITALS: BP 114/58
[2021-07-27] MEDS: MEROPENEM 500 MG VIAL IVP SCH ×2 (00:41→08:29)
[2021-07-27 04:00] VITALS: BP 141/85
[2021-07-27 05:07] LABS: HEMATOCRIT 31.1 % (36-48); MEAN CORPUSCULAR HEMOGLOBIN 29.5 pg (27.0-33.0); MEAN CORPUSCULAR HGB CONC 32.8 g/dL (32.0-36.0); MEAN CORPUSCULAR VOLUME 89.9 fL (79-99); RED BLOOD CELL COUNT(AUTO) 3.46 MIL/uL (4.00-5.50); RED CELL DISTRIBUTION WIDTH 12.4 % (11.0-15.5); WHITE BLOOD COUNT (AUTO) 8.5 K/uL (4.8-10.8)
[2021-07-27 05:29] LABS: ALBUMIN 1.6 g/dL (3.5-5.0); BILIRUBIN,TOTAL 0.2 mg/dL (0.2-1.0); CREATININE 1.9 mg/dL (0.5-1.5); POTASSIUM 3.9 mmol/L (3.5-5.1); TOTAL PROTEIN, SERUM 5.2 g/dL (6.0-8.3)
[2021-07-27] MEDS: INSULIN HUMULIN R 100 UNIT/ML 3ML SQ SCH ×2 (06:24→12:31)
[2021-07-27] MEDS ORDERED: INSULIN GLARGINE 100 UNITS/ML 10 ML VIAL SQ SCH (07:00)
[2021-07-27] MEDS ORDERED: INSULIN HUMULIN R 100 UNIT/ML 3ML SQ SCH (07:30)
[2021-07-27 08:00] VITALS: BP 166/102
[2021-07-27] MEDS: ENOXAPARIN SODIUM 30 MG/0.3 ML SQ SCH (08:29)
[2021-07-27] MEDS: ASPIRIN 81MG CHEW TAB PO SCH (08:30)
[2021-07-27] MEDS: AMLODIPINE 5 MG TAB PO SCH (08:30)
[2021-07-27] MEDS: METOPROLOL TARTRATE 25 MG TAB PO SCH (08:30)
[2021-07-27] MEDS: METOCLOPRAMIDE 10 MG/2 ML VIAL IVP SCH ×2 (08:31→12:33)
[2021-07-27] MEDS: PANTOPRAZOLE 40 MG/VIAL IVP SCH (09:00)
[2021-07-27] MEDS ORDERED: DOXY100C5 PO (10:34)
[2021-07-27] MEDS ORDERED: ASPI-1005 PO (10:34)
[2021-07-27] MEDS ORDERED: METO10TA41 PO (10:34)
[2021-07-27] MEDS ORDERED: HUM100IN SQ (11:11)
[2021-07-27 12:00] VITALS: BP 165/105
[2021-07-27 16:00] VITALS: BP 156/97
== END 2021-07-27 17:25 | disposition home or self-care (01) | DRG 871 ==
LOC: EDH 17:36 → EDHIP 20:04 → 2BH 07-23 10:11 → 4CH 07-23 21:16
PROVIDERS: ADMIT Internal Medicine Critical Care Medicine; ATTEND Internal Medicine Critical Care Medicine
DX: A41.89 Other specified sepsis (principal); E10.10 Type 1 diabetes mellitus with ketoacidosis without coma; K85.90 Acute pancreatitis without necrosis or infection, unspecified; E43 Unspecified severe protein-calorie malnutrition; I21.A1 Myocardial infarction type 2; E87.1 Hypo-osmolality and hyponatremia; N17.9 Acute kidney failure, unspecified; N18.4 Chronic kidney disease, stage 4 (severe); Z20.822 Contact with and (suspected) exposure to COVID-19; I12.9 Hypertensive chronic kidney disease with stage 1 through stage 4 chronic kidney disease, or unspecified chronic kidney disease; E10.319 Type 1 diabetes mellitus with unspecified diabetic retinopathy without macular edema; E10.22 Type 1 diabetes mellitus with diabetic chronic kidney disease; E66.9 Obesity, unspecified; D64.9 Anemia, unspecified; E78.5 Hyperlipidemia, unspecified; R74.8 Abnormal levels of other serum enzymes; E78.00 Pure hypercholesterolemia, unspecified; H54.8 Legal blindness, as defined in USA; K29.70 Gastritis, unspecified, without bleeding; Z68.32 Body mass index [BMI] 32.0-32.9, adult; Z88.0 Allergy status to penicillin; Z79.4 Long term (current) use of insulin; Z79.899 Other long term (current) drug therapy; Z91.14 Patient's other noncompliance with medication regimen; Z91.11 Patient's noncompliance with dietary regimen; Z91.19 Patient's noncompliance with other medical treatment and regimen; Z83.3 Family history of diabetes mellitus; Z82.49 Family history of ischemic heart disease and other diseases of the circulatory system
CPT/HCPCS: 36415; 36600; 71045; 74150; 76700; 80048; 80053; 80061; 80305; 81001; 82010; 82150; 82435; 82570; 82803; 82947; 82948; 83036; 83540; 83550; 83605; 83690; 83735; 83880; 84132; 84145; 84156; 84295; 84484; 84702; 85018; 85025; 85027; 86140; 87040; 87077; 87088; 87186; 87635; 87804; 93005; 94640; 94664; C9113; G0378; J1200; J1650; J1815; J2185; J2765; J2930; J3411; J3480; J3490; J7030; J7042; J7070; J7131

== ENCOUNTER 2022-06-21 11:10 | Emergency (ER) | payer MEDICARE ==
[~2022-06-21] VITALS: Ht 172.7 cm; Wt 72.6 kg
[~2022-06-21 11:10] MED LIST changes: +ASPI-1005 PO; +DOXY100C5 PO; +HUM100IN SQ; -LEVO500T90 PO; +METO10TA41 PO
[2022-06-21 11:12] VITALS: BP 156/93
[2022-06-21 11:47] LABS: BASOPHILS % (AUTO) 1.4 % (0.0-5.0); EOSINOPHILS % (AUTO) 2.4 % (0.0-8.0); HEMATOCRIT 28.3 % (36-48); LYMPHOCYTES % (AUTO) 23.6 % (21.0-51.0); MEAN CORPUSCULAR HEMOGLOBIN 29.1 pg (27.0-33.0); MEAN CORPUSCULAR HGB CONC 32.9 g/dL (32.0-36.0); MEAN CORPUSCULAR VOLUME 88.4 fL (79-99); MONOCYTES % (AUTO) 6.7 % (3.0-13.0); NEUTROPHILS % (AUTO) 65.7 % (40.0-77.0); PLATELET COUNT (AUTO) 387 K/uL (130-400); RED CELL DISTRIBUTION WIDTH 12.4 % (11.0-15.5); WHITE BLOOD COUNT (AUTO) 8.5 K/uL (4.8-10.8)
[2022-06-21 12:00] LABS: CARBON DIOXIDE 19 mmol/L (21-32); CHLORIDE 108 mmol/L (101-111); CREATININE 4.9 mg/dL (0.5-1.5); GLOMERULAR FILTR. RATE CALC 11 mL/min (>60); GLUCOSE,RANDOM 207 mg/dL (70-105); POTASSIUM 4.8 mmol/L (3.5-5.1); SODIUM SERUM 138 mmol/L (136-145); UREA NITROGEN, BLOOD 57 mg/dL (7-18)
[2022-06-21] MEDS ORDERED: ONDANSETRON 4MG INJ IVP ONE (12:00)
[2022-06-21] MEDS ORDERED: 0.9%NACL 1000ML 1,000 ML IV SCH (12:00)
[2022-06-21 12:03] LABS: ALANINE AMINOTRANSFERASE 20 U/L (12-78); ALBUMIN 2.6 g/dL (3.5-5.0); ASPARTATE AMINOTRANSFERASE 12 U/L (10-37); LIPASE 150 U/L (114-286); TOTAL PROTEIN, SERUM 7.4 g/dL (6.0-8.3)
[2022-06-21 12:11] LABS: APPEARANCE,URINE CLEAR (CLEAR); BILIRUBIN,URINE NEGATIVE (NEGATIVE); COLOR,URINE YELLOW (YELLOW); GLUCOSE, URINE (UA) 100 mg/dL (NEGATIVE); KETONES,URINE NEGATIVE (NEGATIVE); LEUKOCYTE ESTERASE ,URINE MODERATE Leu/uL (NEGATIVE); NITRATE,URINE NEGATIVE (NEGATIVE); OCCULT BLOOD,URINE MODERATE (NEGATIVE); PH,URINE 5.5 (5.0-8.0); PROTEIN,URINE 100 mg/dL (NEGATIVE); UROBILINOGEN,URINE 0.2 mg/dL (0.2-1.0)
[2022-06-21 12:46] LABS: BACTERIA,URINE Moderate /HPF (None Seen); SQUAMOUS EPITHELIAL CELL,UR 0-2 /HPF (0-2)
[2022-06-21 12:48] LABS: CRP QUANTITATIVE < 2.00 mg/L (0.00-9.0)
[2022-06-21 12:55] LABS: HCG,QUALITATIVE URINE NEGATIVE (NEGATIVE)
[2022-06-21] MEDS ORDERED: CEFTRIAXONE 1G VIAL IVP ONE (13:00)
[2022-06-21] MEDS ORDERED: OSELTAMIVIR PHOSPHATE 75 MG CAP PO SCH (13:00)
[2022-06-21] MEDS ORDERED: ONDA4TAB10 PO (13:10)
[2022-06-21] MEDS ORDERED: CEFU500T67 PO (13:10)
[2022-06-21] MEDS ORDERED: OSEL75 PO (13:10)
[2022-06-21] MEDS ORDERED: CEFTRIAXONE 1G VIAL ONE (13:13)
== END 2022-06-21 13:40 | disposition home or self-care (01) ==
LOC: EDH 11:10
DX: E11.319 Type 2 diabetes mellitus with unspecified diabetic retinopathy without macular edema (principal); N19 Unspecified kidney failure; N39.0 Urinary tract infection, site not specified; J10.1 Influenza due to other identified influenza virus with other respiratory manifestations; D64.9 Anemia, unspecified; E86.0 Dehydration; B07.0 Plantar wart; I10 Essential (primary) hypertension; Z79.82 Long term (current) use of aspirin; Z88.0 Allergy status to penicillin; Z79.4 Long term (current) use of insulin; Z79.899 Other long term (current) drug therapy
CPT/HCPCS: 99283; 96374; 96361; 80053; 83690; 85025; 87077; 87088; 87186; 87804 ×2; 86140; 81001; 81025; 36415; J7030; J0696; J2405

== ENCOUNTER 2023-02-03 12:28 | Observation (INO) | payer MEDICARE ==
[~2023-02-03] VITALS: Ht 162.6 cm; Wt 90.3 kg
[~2023-02-03 12:28] MED LIST changes: +CEFU500T67 PO; +ONDA4TAB10 PO; +OSEL75 PO
[2023-02-03 13:55] LABS: BASOPHILS % (AUTO) 0.9 % (0.0-5.0); EOSINOPHILS % (AUTO) 2.2 % (0.0-8.0); HEMATOCRIT 27.8 % (36-48); LYMPHOCYTES % (AUTO) 23.5 % (21.0-51.0); MEAN CORPUSCULAR HEMOGLOBIN 27.9 pg (27.0-33.0); MEAN CORPUSCULAR VOLUME 87.1 fL (79-99); MONOCYTES % (AUTO) 4.8 % (3.0-13.0); NEUTROPHILS % (AUTO) 68.5 % (40.0-77.0); PLATELET COUNT (AUTO) 348 K/uL (130-400); RED BLOOD CELL COUNT(AUTO) 3.19 MIL/uL (4.00-5.50); RED CELL DISTRIBUTION WIDTH 12.7 % (11.0-15.5); WHITE BLOOD COUNT (AUTO) 7.8 K/uL (4.8-10.8)
[2023-02-03 14:13] LABS: ALBUMIN 2.4 g/dL (3.5-5.0); CREATININE 3.9 mg/dL (0.5-1.5); POTASSIUM 4.9 mmol/L (3.5-5.1)
[2023-02-03 14:16] LABS: TOTAL PROTEIN, SERUM 6.8 g/dL (6.0-8.3)
[2023-02-03 14:47] LABS: APPEARANCE,URINE CLOUDY (CLEAR); BILIRUBIN,URINE NEGATIVE (NEGATIVE); COLOR,URINE LIGHT-YELLOW (YELLOW); GLUCOSE, URINE (UA) >=1000 mg/dL (NEGATIVE); KETONES,URINE NEGATIVE (NEGATIVE); LEUKOCYTE ESTERASE ,URINE 500 Leu/uL (NEGATIVE); NITRATE,URINE NEGATIVE (NEGATIVE); OCCULT BLOOD,URINE SMALL (NEGATIVE); PROTEIN,URINE 300 mg/dL (NEGATIVE); UROBILINOGEN,URINE 0.2 mg/dL (0.2-1.0)
[2023-02-03 14:51] LABS: BACTERIA,URINE MANY /HPF (None Seen); MUCUS,URINE RARE LPF (None Seen); SQUAMOUS EPITHELIAL CELL,UR RARE /HPF (0-2); WBC,URINE 51-100 /HPF (0-1); YEAST,URINE BUDDING RARE /HPF (None Seen)
[2023-02-03] MEDS ORDERED: LACTATED RINGERS 1000ML 1,000 ML IV SCH (16:30)
[2023-02-03] MEDS ORDERED: INSULIN HUMULIN R 100 UNIT/ML 3ML IV SCH (16:30)
[2023-02-03] MEDS ORDERED: MAG/ALUM/SIMETH 30 ML UDCUP PO PRN (17:30)
[2023-02-03] MEDS ORDERED: NITROGLYCERIN 0.4 MG SL TAB SL PRN (17:30)
[2023-02-03] MEDS ORDERED: KETOROLAC 15MG/ML VIAL (15MG/ML) IV PRN (17:30)
[2023-02-03] MEDS ORDERED: ALBUTEROL 0.083% 2.5 MG/3 ML INH IH PRN (17:30)
[2023-02-03] MEDS ORDERED: KETOROLAC 10 MG TABLET PO PRN (17:30)
[2023-02-03] MEDS ORDERED: LACTULOSE 20 GM/30 ML UDCUP PO PRN (17:30)
[2023-02-03] MEDS ORDERED: GUAIFENESIN-DM 200/20 MG 10 ML PO PRN (17:30)
[2023-02-03] MEDS ORDERED: DIPHENHYDRAMINE HCL 25 MG CAPSULE PO PRN (17:30)
[2023-02-03] MEDS ORDERED: ACETAMINOPHEN 325 MG TAB PO PRN (17:30)
[2023-02-03] MEDS ORDERED: ONDANSETRON 4MG INJ IV PRN (17:30)
[2023-02-03] MEDS ORDERED: ZOLPIDEM TARTRATE 5 MG TAB PO PRN (17:30)
[2023-02-03] MEDS ORDERED: MORPHINE 2 MG SYG IVP PRN (17:30)
[2023-02-03] MEDS: 0.9%NACL 1000ML 1,000 ML IV SCH (17:58)
[2023-02-03] MEDS ORDERED: DEXTROSE 50%-WATER 50 ML DISP.SYRIN IV ONE ×2 (18:44→19:00)
[2023-02-03] MEDS ORDERED: LEVOFLOXACIN 750 MG/D5W 150ML BAG IV SCH (21:00)
[2023-02-03] MEDS: FAMOTIDINE 20MG VIAL IV SCH ×2 (21:00→22:08)
[2023-02-03] MEDS: HEPARIN 5,000 UNIT VIAL SQ SCH (22:09)
[2023-02-04] MEDS: HYDRALAZINE 20MG/ML VIAL IV PRN ×2 (03:10→14:07)
[2023-02-04] MEDS: 0.9%NACL 1000ML 1,000 ML IV SCH ×3 (03:13→19:57)
[2023-02-04 04:00] VITALS: BP 139/56
[2023-02-04 05:30] LABS: BASOPHILS % (AUTO) 1.1 % (0.0-5.0); EOSINOPHILS % (AUTO) 2.7 % (0.0-8.0); HEMATOCRIT 27.9 % (36-48); LYMPHOCYTES % (AUTO) 23.5 % (21.0-51.0); MEAN CORPUSCULAR HEMOGLOBIN 28.2 pg (27.0-33.0); MEAN CORPUSCULAR HGB CONC 31.5 g/dL (32.0-36.0); MEAN CORPUSCULAR VOLUME 89.4 fL (79-99); MONOCYTES % (AUTO) 4.9 % (3.0-13.0); NEUTROPHILS % (AUTO) 67.5 % (40.0-77.0); PLATELET COUNT (AUTO) 332 K/uL (130-400); RED BLOOD CELL COUNT(AUTO) 3.12 MIL/uL (4.00-5.50); RED CELL DISTRIBUTION WIDTH 12.7 % (11.0-15.5); WHITE BLOOD COUNT (AUTO) 7.3 K/uL (4.8-10.8)
[2023-02-04 05:34] LABS: HEMOGLOBIN A1C 9.8 % (4.0-6.0)
[2023-02-04 05:38] LABS: INR 0.93 (0.85-1.15); PROTHROMBIN TIME 10.7 SEC (9.6-11.6)
[2023-02-04 05:58] LABS: ALBUMIN 2.2 g/dL (3.5-5.0); CREATININE 3.6 mg/dL (0.5-1.5); MAGNESIUM 1.5 mg/dL (1.80-2.40); POTASSIUM 4.3 mmol/L (3.5-5.1); THYROID STIMULATING HORMONE 3.09 uIU/mL (0.36-3.74); TOTAL PROTEIN, SERUM 6.5 g/dL (6.0-8.3)
[2023-02-04] MEDS: ACETAMINOPHEN 325 MG TAB PO PRN (06:47)
[2023-02-04] MEDS: FAMOTIDINE 20MG VIAL IV SCH ×4 (07:45→19:52)
[2023-02-04 08:00] VITALS: BP 169/84
[2023-02-04] MEDS: HEPARIN 5,000 UNIT VIAL SQ SCH ×2 (10:03→19:54)
[2023-02-04 11:48] VITALS: BP 172/89
[2023-02-04] MEDS ORDERED: MAGNESIUM 2GM PREMIX 50ML 50 ML IV PRN (14:00)
[2023-02-04 16:00] VITALS: BP 140/76
[2023-02-04] MEDS: METOCLOPRAMIDE 10 MG TABLET PO SCH ×2 (16:08→19:55)
[2023-02-04] MEDS ORDERED: INSU100V54 SQ (16:18)
[2023-02-04] MEDS ORDERED: INSU100I47 SQ (16:18)
[2023-02-04] MEDS ORDERED: INSULIN HUMULIN 70/30 100 UNIT/ML 3ML SQ SCH (16:30)
[2023-02-04] MEDS: INSULIN LISPRO 100 UNIT/ML 3ML SQ SCH (19:55)
[2023-02-04] MEDS: HYDRALAZINE 25MG TABLET PO SCH (19:57)
[2023-02-04 20:00] VITALS: BP 149/79
[2023-02-05] VITALS: BP 136/73
[2023-02-05 04:00] VITALS: BP 130/69
[2023-02-05 05:27] LABS: BASOPHILS % (AUTO) 1.5 % (0.0-5.0); HEMATOCRIT 26.1 % (36-48); LYMPHOCYTES % (AUTO) 29.7 % (21.0-51.0); MEAN CORPUSCULAR HGB CONC 31.8 g/dL (32.0-36.0); MEAN CORPUSCULAR VOLUME 88.2 fL (79-99); MONOCYTES % (AUTO) 7.7 % (3.0-13.0); NEUTROPHILS % (AUTO) 58.9 % (40.0-77.0); PLATELET COUNT (AUTO) 315 K/uL (130-400); RED BLOOD CELL COUNT(AUTO) 2.96 MIL/uL (4.00-5.50); RED CELL DISTRIBUTION WIDTH 12.9 % (11.0-15.5)
[2023-02-05 05:52] LABS: ALBUMIN 2.1 g/dL (3.5-5.0); CREATININE 3.9 mg/dL (0.5-1.5); MAGNESIUM 1.5 mg/dL (1.80-2.40); POTASSIUM 5.1 mmol/L (3.5-5.1); TOTAL PROTEIN, SERUM 6.2 g/dL (6.0-8.3)
[2023-02-05] MEDS: METOCLOPRAMIDE 10 MG TABLET PO SCH ×3 (05:55→16:40)
[2023-02-05] MEDS: INSULIN LISPRO 100 UNIT/ML 3ML SQ SCH ×3 (06:01→16:30)
[2023-02-05] MEDS: FAMOTIDINE 20MG VIAL IV SCH ×2 (07:47→08:35)
[2023-02-05 08:00] VITALS: BP 161/91
[2023-02-05] MEDS: HYDRALAZINE 25MG TABLET PO SCH ×2 (08:34→14:00)
[2023-02-05] MEDS: HEPARIN 5,000 UNIT VIAL SQ SCH (08:47)
[2023-02-05] MEDS ORDERED: ASPIRIN 81MG CHEW TAB PO SCH (09:00)
[2023-02-05] MEDS ORDERED: INSULIN DEGLUDEC 40 UNIT SQ SCH (09:00)
[2023-02-05] MEDS ORDERED: AMLODIPINE 5 MG TAB PO SCH (09:00)
[2023-02-05] MEDS ORDERED: PANTOPRAZOLE 40 MG TAB DR PO SCH (09:00)
[2023-02-05] MEDS ORDERED: METOPROLOL TARTRATE 25 MG TAB PO SCH (09:00)
[2023-02-05] MEDS: ACETAMINOPHEN 325 MG TAB PO PRN (09:29)
[2023-02-05] MEDS ORDERED: MAGNESIUM 2GM PREMIX 50ML 50 ML IV SCH (10:00)
[2023-02-05] MEDS ORDERED: HYDR25 PO (17:04)
[2023-02-05] MEDS ORDERED: FAMO10VI2 IV (17:04)
[2023-02-05] MEDS ORDERED: METO25 PO (17:04)
[2023-02-05] MEDS ORDERED: CEPH500B PO (17:08)
== END 2023-02-05 19:00 | disposition home or self-care (01) ==
LOC: EDH 12:28 → EDHIP 17:05 → 4CH 02-04 02:42
PROVIDERS: ADMIT Internal Medicine Critical Care Medicine; ATTEND Internal Medicine Critical Care Medicine
DX: E10.65 Type 1 diabetes mellitus with hyperglycemia (principal); I16.1 Hypertensive emergency; J96.01 Acute respiratory failure with hypoxia; I20.9 Angina pectoris, unspecified; N30.00 Acute cystitis without hematuria; I12.9 Hypertensive chronic kidney disease with stage 1 through stage 4 chronic kidney disease, or unspecified chronic kidney disease; E10.22 Type 1 diabetes mellitus with diabetic chronic kidney disease; N18.4 Chronic kidney disease, stage 4 (severe); D63.1 Anemia in chronic kidney disease; N17.9 Acute kidney failure, unspecified; E10.319 Type 1 diabetes mellitus with unspecified diabetic retinopathy without macular edema; E10.39 Type 1 diabetes mellitus with other diabetic ophthalmic complication; E78.00 Pure hypercholesterolemia, unspecified; E88.09 Other disorders of plasma-protein metabolism, not elsewhere classified; H54.8 Legal blindness, as defined in USA; Z88.0 Allergy status to penicillin; Z79.4 Long term (current) use of insulin; Z91.199 Patient's noncompliance with other medical treatment and regimen due to unspecified reason; Z79.899 Other long term (current) drug therapy
CPT/HCPCS: 96372 ×4; 96361 ×2; 96365; 96366 ×3; 96375 ×2; 99285; 84484 ×2; 80053 ×3; 83880; 85025 ×3; 87077; 87088; 87186; 82948 ×9; 82010; 81001; 36415 ×3; 71045; 71250; 93306; 93356; 93005; 94664; 97039 ×2; 96376 ×2; 83036; 84443; 82550; 83735 ×2; 82140; 85610; 83605; 93975; 97161; 84145; 96367; J1815 ×2; G0378 ×49; J7120 ×2; J3490 ×4; J1956; J7070; J2270; J0360 ×2; J1644 ×3; J3475

== ENCOUNTER 2023-02-13 06:38 | Emergency (ER) | payer MEDICARE ==
[~2023-02-13 06:38] MED LIST changes: -CEFU500T67 PO; +CEPH500B PO; -DOXY100C5 PO; +FAMO10VI2 IV; -HUM100IN SQ; -HUM10VIA SQ; +HYDR25 PO; +INSU100I47 SQ; +INSU100V54 SQ; -LISI20TA24 PO; +METO25 PO; -ONDA4TAB10 PO; -OSEL75 PO
[2023-02-13 07:35] LABS: EOSINOPHILS % (AUTO) 2.5 % (0.0-8.0); LYMPHOCYTES % (AUTO) 16.4 % (21.0-51.0); MEAN CORPUSCULAR HEMOGLOBIN 28.3 pg (27.0-33.0); MEAN CORPUSCULAR HGB CONC 31.4 g/dL (32.0-36.0); MEAN CORPUSCULAR VOLUME 90.1 fL (79-99); MONOCYTES % (AUTO) 4.5 % (3.0-13.0); NEUTROPHILS % (AUTO) 75.2 % (40.0-77.0); PLATELET COUNT (AUTO) 371 K/uL (130-400); RED BLOOD CELL COUNT(AUTO) 3.22 MIL/uL (4.00-5.50); RED CELL DISTRIBUTION WIDTH 13.2 % (11.0-15.5); WHITE BLOOD COUNT (AUTO) 9.5 K/uL (4.8-10.8)
[2023-02-13] MEDS ORDERED: PANTOPRAZOLE 40 MG/VIAL IVP STA (07:45)
[2023-02-13 07:50] LABS: ALBUMIN 2.6 g/dL (3.5-5.0); CREATININE 4.5 mg/dL (0.5-1.5); POTASSIUM 4.7 mmol/L (3.5-5.1); TOTAL PROTEIN, SERUM 6.9 g/dL (6.0-8.3)
[2023-02-13] MEDS ORDERED: LIDOCAINE HCL 2% VISCOUS 15 ML UDCUP PO ONE (08:00)
[2023-02-13] MEDS ORDERED: MAG/ALUM/SIMETH 30 ML UDCUP PO ONE (08:00)
[2023-02-13 08:15] LABS: B-TYPE NATRIURETIC PEPTIDE 114 pg/mL (0-100)
[2023-02-13] MEDS ORDERED: PANT40TA55 PO (08:20)
[2023-02-13 08:42] VITALS: BP 139/74
== END 2023-02-13 09:54 | disposition home or self-care (01) ==
LOC: EDH 06:38
DX: E11.22 Type 2 diabetes mellitus with diabetic chronic kidney disease (principal); N18.9 Chronic kidney disease, unspecified; K21.9 Gastro-esophageal reflux disease without esophagitis; N64.4 Mastodynia; Z79.4 Long term (current) use of insulin; Z79.82 Long term (current) use of aspirin; Z79.899 Other long term (current) drug therapy; Z88.0 Allergy status to penicillin
CPT/HCPCS: 36415; 71045; 80053; 83880; 84484; 85025; 93005

== ENCOUNTER 2023-07-10 04:05 | Inpatient (IN) | payer MEDICARE ==
[2023-07-10] VITALS (24 sets, daily range): BP systolic 127–164; BP diastolic 58–93; PULSE 91–102; RESP 10–24; TEMP 98.2–98.6; O2SAT 98–99
[~2023-07-10] VITALS: Ht 172.7 cm; Wt 87.3 kg
[~2023-07-10 04:05] MED LIST changes: -AMLO-258 PO; -ASPI-1005 PO; +ATOR40TA71 PO; -CEPH500B PO; -FAMO10VI2 IV; +FERR325T29 PO; +FOLI0.8T22 PO; +FOLI1TAB85 PO; +INSU100I32 SQ; -INSU100I47 SQ; -INSU100V54 SQ; +LISI20TA24 PO; -METO10TA41 PO; -METO25 PO; +METO50 PO; -PANT40TA PO; +PANT40TA54 PO
[2023-07-10] MEDS ORDERED: LEVOFLOXACIN 750 MG TABLET PO STA (04:14)
[2023-07-10] MEDS ORDERED: 0.9%NACL 1000ML 2,500 ML IV ONE (04:30)
[2023-07-10] MEDS ORDERED: VANCOMYCIN 1G/250ML KIT 250 ML IV ONE (04:30)
[2023-07-10 04:41] LABS: ABG BASE EXCESS -4.2 mmol/L (-2.0-3.0); ABG HCO3 21.1 mmol/L (21.0-28.0); ABG OXYGEN SATURATION 94.4 % (95.0-99.0); ABG PCO2 39 mmHg (32-45); ABG PH 7.347 (7.350-7.450); CARBON MONOXIDE 0.8; HHb 5.5; PO2, ARTERIAL BG 76.7 mmHg (83.0-108.0); VENT MODE, BG ROOMAIR (ROOM AIR)
[2023-07-10 04:56] LABS: BASOPHILS # (AUTO) 0.12 K/uL (0.00-0.20); BASOPHILS % (AUTO) 0.7 % (0.0-5.0); EOSINOPHILS # (AUTO) 0.07 K/uL (0.00-0.70); EOSINOPHILS % (AUTO) 0.4 % (0.0-8.0); HEMATOCRIT 34.1 % (36-48); LYMPHOCYTES # (AUTO) 1.1 K/uL (1.0-4.8); LYMPHOCYTES % (AUTO) 6.1 % (21.0-51.0); MEAN CORPUSCULAR HEMOGLOBIN 30.7 pg (27.0-33.0); MEAN CORPUSCULAR HGB CONC 30.2 g/dL (32.0-36.0); MEAN CORPUSCULAR VOLUME 101.5 fL (79-99); MONOCYTES # (AUTO) 1.1 K/uL (0.1-1.0); MONOCYTES % (AUTO) 6.2 % (3.0-13.0); NEUTROPHILS # (AUTO) 15.4 K/uL (1.8-7.7); PLATELET COUNT (AUTO) 433 K/uL (130-400); RED BLOOD CELL COUNT(AUTO) 3.36 MIL/uL (4.00-5.50); RED CELL DISTRIBUTION WIDTH 13.6 % (11.0-15.5); WHITE BLOOD COUNT (AUTO) 17.9 K/uL (4.8-10.8)
[2023-07-10] MEDS ORDERED: INSULIN REGULAR, HUMAN 3ML 100 UNIT in 0.9%NACL 100ML 99 ML IV SCH ×2 (05:00)
[2023-07-10] MEDS ORDERED: DIPH,PERTUSS(ACELL),TET VAC/PF 0.5 ML VIAL IM ONE (05:00)
[2023-07-10] MEDS ORDERED: SODIUM BICARB 50MEQ 50ML VIAL IV STA (05:07)
[2023-07-10] MEDS ORDERED: HYDRALAZINE 20MG/ML VIAL IV PRN (05:30)
[2023-07-10] MEDS ORDERED: LACTULOSE 20 GM/30 ML UDCUP PO PRN (05:30)
[2023-07-10] MEDS ORDERED: DOCUSATE SODIUM 100 MG CAP PO PRN (05:30)
[2023-07-10] MEDS ORDERED: PHARMACY COMMUNICATION MISC SCH (05:30)
[2023-07-10] MEDS ORDERED: CLONIDINE HCL 0.1 MG TABLET PO PRN (05:30)
[2023-07-10] MEDS ORDERED: LABETALOL 20MG SYG IV PRN (05:30)
[2023-07-10] MEDS ORDERED: ACETAMINOPHEN 650 MG SUPPOSITORY RC PRN (05:30)
[2023-07-10] MEDS ORDERED: TEMAZEPAM 15 MG CAPSULE PO PRN (05:30)
[2023-07-10] MEDS ORDERED: ONDANSETRON 4MG INJ IVP PRN (05:30)
[2023-07-10 05:35] LABS: B-TYPE NATRIURETIC PEPTIDE 355 pg/mL (0-100)
[2023-07-10 05:40] LABS: WBC MORPHOLOGY CONSISTENT W/DIFF
[2023-07-10] MEDS ORDERED: INSULIN HUMULIN R 100 UNIT/ML 3ML ONE (05:43)
[2023-07-10] MEDS: INSULIN GLARGINE 100 UNITS/ML 10 ML VIAL SQ SCH ×3 (05:50→21:20)
[2023-07-10 05:52] LABS: ALBUMIN 1.7 g/dL (3.5-5.0); BILIRUBIN,TOTAL 0.5 mg/dL (0.2-1.0); CREATININE 6.3 mg/dL (0.5-1.5); POTASSIUM 4.3 mmol/L (3.5-5.1); TOTAL PROTEIN, SERUM 7.7 g/dL (6.0-8.3)
[2023-07-10] MEDS ORDERED: VANCOMYCIN 500MG+NS 100ML 100 ML IV ONE ×2 (07:07→08:17)
[2023-07-10] MEDS ORDERED: VANCOMYCIN PROTOCOL PER PHARMACY IV SCH (09:00)
[2023-07-10] MEDS: ACETAMINOPHEN 325 MG TAB PO PRN ×3 (11:46→21:22)
[2023-07-10 13:12] LABS: CREATININE 6.6 mg/dL (0.5-1.5)
[2023-07-10 13:30] LABS: POTASSIUM 2.9 mmol/L (3.5-5.1)
[2023-07-10] MEDS: MORPHINE 2 MG SYG IVP PRN (13:48)
[2023-07-10] MEDS ORDERED: KCL 20 MEQ ERTAB PO ONE ×2 (14:00→22:30)
[2023-07-10] MEDS ORDERED: CLINDAMYCIN IVPB 600MG/50ML 50 ML IV SCH (15:30)
[2023-07-10] MEDS ORDERED: GLUCAGON 1MG KIT 1 MG ML IM PRN (15:30)
[2023-07-10] MEDS ORDERED: DEXTROSE 50%-WATER 50 ML DISP.SYRIN IV PRN (15:30)
[2023-07-10] MEDS ORDERED: VANCOMYCIN 750MG VIAL IVPB SCH (16:00)
[2023-07-10] MEDS: INSULIN HUMULIN R 100 UNIT/ML 3ML SQ SCH ×2 (16:30→21:21)
[2023-07-10] MEDS: HYDRALAZINE 25MG TABLET PO SCH (21:22)
[2023-07-10] MEDS: ATORVASTATIN 40 MG TABLET PO SCH (21:22)
[2023-07-10] MEDS: METOPROLOL TARTRATE 50 MG TAB PO SCH (21:32)
[2023-07-10] MEDS ORDERED: LEVOFLOXACIN 750 MG/D5W 150 ML 150 ML IV SCH (22:00)
[2023-07-10] MEDS: CLINDAMYCIN IVPB 600MG/50ML 50 ML IV SCH (22:47)
[2023-07-11] VITALS: BP 123/62; PULSE 86
[2023-07-11 04:00] VITALS: BP 134/72; PULSE 80; RESP 19
[2023-07-11 04:53] LABS: BASOPHILS # (AUTO) 0.07 K/uL (0.00-0.20); BASOPHILS % (AUTO) 0.6 % (0.0-5.0); EOSINOPHILS # (AUTO) 0.15 K/uL (0.00-0.70); EOSINOPHILS % (AUTO) 1.3 % (0.0-8.0); HEMATOCRIT 30.9 % (36-48); IMMATURE GRANULOCYTE ABSOLUTE 0.07 K/uL (0-1); LYMPHOCYTES # (AUTO) 1.5 K/uL (1.0-4.8); LYMPHOCYTES % (AUTO) 13.7 % (21.0-51.0); MEAN CORPUSCULAR HEMOGLOBIN 30.6 pg (27.0-33.0); MEAN CORPUSCULAR HGB CONC 30.7 g/dL (32.0-36.0); MEAN CORPUSCULAR VOLUME 99.7 fL (79-99); MONOCYTES # (AUTO) 0.9 K/uL (0.1-1.0); MONOCYTES % (AUTO) 7.9 % (3.0-13.0); NEUTROPHILS # (AUTO) 8.5 K/uL (1.8-7.7); NEUTROPHILS % (AUTO) 75.9 % (40.0-77.0); PLATELET COUNT (AUTO) 375 K/uL (130-400); RED CELL DISTRIBUTION WIDTH 13.6 % (11.0-15.5); WHITE BLOOD COUNT (AUTO) 11.2 K/uL (4.8-10.8)
[2023-07-11 05:07] LABS: CREATININE 4.6 mg/dL (0.5-1.5); MAGNESIUM 1.9 mg/dL (1.80-2.40); POTASSIUM 3.8 mmol/L (3.5-5.1)
[2023-07-11] MEDS: ACETAMINOPHEN 325 MG TAB PO PRN ×2 (06:15→23:04)
[2023-07-11] MEDS: CLINDAMYCIN IVPB 600MG/50ML 50 ML IV SCH ×3 (06:15→23:04)
[2023-07-11 08:00] VITALS: BP 137/76; PULSE 84; RESP 14; O2SAT 98
[2023-07-11] MEDS: INSULIN HUMULIN R 100 UNIT/ML 3ML SQ SCH ×4 (08:12→21:03)
[2023-07-11] MEDS: Vitamin B Complex/Vit C/Folic Acid PO SCH (08:16)
[2023-07-11] MEDS: METOPROLOL TARTRATE 50 MG TAB PO SCH ×2 (08:17→20:59)
[2023-07-11] MEDS: LISINOPRIL 20 MG TABLET PO SCH (08:17)
[2023-07-11] MEDS: PANTOPRAZOLE 40 MG TAB DR PO SCH (08:17)
[2023-07-11] MEDS: FERROUS SULFATE 325 MG TABLET.DR PO SCH (08:17)
[2023-07-11] MEDS: INSULIN GLARGINE 100 UNITS/ML 10 ML VIAL SQ SCH ×2 (08:24→21:05)
[2023-07-11] MEDS: HYDRALAZINE 25MG TABLET PO SCH ×3 (08:24→20:58)
[2023-07-11] MEDS: MORPHINE 2 MG SYG IVP PRN ×2 (10:33→17:39)
[2023-07-11 12:00] VITALS: BP 143/69; PULSE 81; RESP 16
[2023-07-11 16:00] VITALS: BP 146/68; PULSE 88; RESP 18
[2023-07-11 20:00] VITALS: BP 123/62; PULSE 89; RESP 18; O2SAT 98
[2023-07-11] MEDS: ATORVASTATIN 40 MG TABLET PO SCH (20:59)
[2023-07-12] VITALS (20 sets, daily range): BP systolic 105–171; BP diastolic 47–93; PULSE 66–89; RESP 16–18; TEMP 98–98.5; O2SAT 93–100
[2023-07-12] MEDS: CLINDAMYCIN IVPB 600MG/50ML 50 ML IV SCH (05:03)
[2023-07-12 06:16] LABS: BASOPHILS # (AUTO) 0.07 K/uL (0.00-0.20); BASOPHILS % (AUTO) 0.6 % (0.0-5.0); EOSINOPHILS # (AUTO) 0.16 K/uL (0.00-0.70); EOSINOPHILS % (AUTO) 1.4 % (0.0-8.0); HEMATOCRIT 31.5 % (36-48); IMMATURE GRANULOCYTE ABSOLUTE 0.07 K/uL (0-1); LYMPHOCYTES # (AUTO) 2.3 K/uL (1.0-4.8); LYMPHOCYTES % (AUTO) 20.6 % (21.0-51.0); MEAN CORPUSCULAR HEMOGLOBIN 31.1 pg (27.0-33.0); MEAN CORPUSCULAR HGB CONC 30.5 g/dL (32.0-36.0); MEAN CORPUSCULAR VOLUME 101.9 fL (79-99); MONOCYTES # (AUTO) 1.1 K/uL (0.1-1.0); MONOCYTES % (AUTO) 9.5 % (3.0-13.0); NEUTROPHILS # (AUTO) 7.6 K/uL (1.8-7.7); NEUTROPHILS % (AUTO) 67.3 % (40.0-77.0); PLATELET COUNT (AUTO) 389 K/uL (130-400); RED BLOOD CELL COUNT(AUTO) 3.09 MIL/uL (4.00-5.50); RED CELL DISTRIBUTION WIDTH 13.6 % (11.0-15.5); WHITE BLOOD COUNT (AUTO) 11.3 K/uL (4.8-10.8)
[2023-07-12] MEDS: INSULIN HUMULIN R 100 UNIT/ML 3ML SQ SCH ×4 (06:48→20:59)
[2023-07-12] MEDS: INSULIN GLARGINE 100 UNITS/ML 10 ML VIAL SQ SCH ×2 (06:50→21:05)
[2023-07-12 07:38] LABS: BILIRUBIN,TOTAL 0.2 mg/dL (0.2-1.0); CREATININE 6.9 mg/dL (0.5-1.5); POTASSIUM 3.5 mmol/L (3.5-5.1)
[2023-07-12 07:48] LABS: VANCOMYCIN LEVEL 32.5 mcg/mL (20.0-30.0)
[2023-07-12 07:56] LABS: ALBUMIN 1.6 g/dL (3.5-5.0)
[2023-07-12] MEDS: LISINOPRIL 20 MG TABLET PO SCH ×2 (09:00→20:58)
[2023-07-12] MEDS: FERROUS SULFATE 325 MG TABLET.DR PO SCH (09:16)
[2023-07-12] MEDS: PANTOPRAZOLE 40 MG TAB DR PO SCH (09:16)
[2023-07-12] MEDS: Vitamin B Complex/Vit C/Folic Acid PO SCH (09:17)
[2023-07-12] MEDS ORDERED: ZOSYN 3.375GM +NS 50ML IV SCH (09:30)
[2023-07-12] MEDS: AZTREONAM 1 GM VIAL IVPB SCH ×2 (10:14→17:30)
[2023-07-12] MEDS: MORPHINE 2 MG SYG IVP PRN (13:27)
[2023-07-12] MEDS: HYDRALAZINE 25MG TABLET PO SCH ×3 (14:00→21:00)
[2023-07-12] MEDS: ACETAMINOPHEN 325 MG TAB PO PRN ×2 (15:57→21:15)
[2023-07-12] MEDS ORDERED: DIPH,PERTUSS(ACELL),TET VAC/PF 0.5 ML VIAL IM ONE (18:30)
[2023-07-12] MEDS: METOPROLOL TARTRATE 50 MG TAB PO SCH ×2 (20:58→21:00)
[2023-07-12] MEDS: ATORVASTATIN 40 MG TABLET PO SCH (20:58)
[2023-07-13] VITALS (22 sets, daily range): BP systolic 88–136; BP diastolic 53–79; PULSE 68–89; RESP 14–20; O2SAT 98
[2023-07-13] MEDS: AZTREONAM 1 GM VIAL IVPB SCH ×2 (00:48→09:48)
[2023-07-13] MEDS: MORPHINE 2 MG SYG IVP PRN ×5 (00:49→22:37)
[2023-07-13 05:49] LABS: BASOPHILS % (AUTO) 0.9 % (0.0-5.0); EOSINOPHILS # (AUTO) 0.14 K/uL (0.00-0.70); EOSINOPHILS % (AUTO) 1.3 % (0.0-8.0); HEMATOCRIT 34.3 % (36-48); IMMATURE GRANULOCYTE ABSOLUTE 0.08 K/uL (0-1); LYMPHOCYTES # (AUTO) 1.8 K/uL (1.0-4.8); LYMPHOCYTES % (AUTO) 16.5 % (21.0-51.0); MEAN CORPUSCULAR HEMOGLOBIN 30.9 pg (27.0-33.0); MEAN CORPUSCULAR HGB CONC 30.3 g/dL (32.0-36.0); MEAN CORPUSCULAR VOLUME 101.8 fL (79-99); MONOCYTES # (AUTO) 1.2 K/uL (0.1-1.0); MONOCYTES % (AUTO) 10.9 % (3.0-13.0); NEUTROPHILS # (AUTO) 7.4 K/uL (1.8-7.7); NEUTROPHILS % (AUTO) 69.6 % (40.0-77.0); PLATELET COUNT (AUTO) 374 K/uL (130-400); RED BLOOD CELL COUNT(AUTO) 3.37 MIL/uL (4.00-5.50); RED CELL DISTRIBUTION WIDTH 13.7 % (11.0-15.5); WHITE BLOOD COUNT (AUTO) 10.6 K/uL (4.8-10.8)
[2023-07-13] MEDS: INSULIN HUMULIN R 100 UNIT/ML 3ML SQ SCH ×4 (07:36→21:18)
[2023-07-13] MEDS: INSULIN GLARGINE 100 UNITS/ML 10 ML VIAL SQ SCH ×2 (07:38→21:19)
[2023-07-13] MEDS: LISINOPRIL 20 MG TABLET PO SCH ×2 (09:00→09:48)
[2023-07-13] MEDS: Vitamin B Complex/Vit C/Folic Acid PO SCH (09:47)
[2023-07-13] MEDS: HYDRALAZINE 25MG TABLET PO SCH ×3 (09:48→20:06)
[2023-07-13] MEDS: FERROUS SULFATE 325 MG TABLET.DR PO SCH (09:48)
[2023-07-13] MEDS: METOPROLOL TARTRATE 50 MG TAB PO SCH ×2 (09:48→20:03)
[2023-07-13] MEDS: PANTOPRAZOLE 40 MG TAB DR PO SCH (09:48)
[2023-07-13] MEDS ORDERED: FENTANYL CITRATE PF 50 MCG/1 ML 2ML VIAL ONE (11:27)
[2023-07-13] MEDS ORDERED: MIDAZOLAM HCL 1 MG/ML 2ML VIAL ONE (11:27)
[2023-07-13] MEDS: CEFAZOLIN SODIUM 1 GM VIAL IVPB SCH (16:51)
[2023-07-13] MEDS: ATORVASTATIN 40 MG TABLET PO SCH (20:04)
[2023-07-14] VITALS (10 sets, daily range): BP systolic 100–130; BP diastolic 57–79; PULSE 66–91; RESP 18–19; O2SAT 95
[2023-07-14] MEDS: ACETAMINOPHEN 325 MG TAB PO PRN (00:45)
[2023-07-14] MEDS: MORPHINE 2 MG SYG IVP PRN ×2 (01:54→20:31)
[2023-07-14] MEDS: INSULIN HUMULIN R 100 UNIT/ML 3ML SQ SCH ×4 (06:35→20:30)
[2023-07-14] MEDS: INSULIN GLARGINE 100 UNITS/ML 10 ML VIAL SQ SCH ×3 (06:36→20:30)
[2023-07-14] MEDS: Vitamin B Complex/Vit C/Folic Acid PO SCH (09:40)
[2023-07-14] MEDS: FERROUS SULFATE 325 MG TABLET.DR PO SCH (09:40)
[2023-07-14] MEDS: PANTOPRAZOLE 40 MG TAB DR PO SCH (09:41)
[2023-07-14] MEDS: METOPROLOL TARTRATE 50 MG TAB PO SCH ×2 (09:41→20:29)
[2023-07-14] MEDS: HYDRALAZINE 25MG TABLET PO SCH ×3 (09:41→20:28)
[2023-07-14] MEDS: LISINOPRIL 20 MG TABLET PO SCH (09:41)
[2023-07-14] MEDS: HYDROCODONE/ACETAMINOPHEN 5/325 MG TAB PO PRN (09:42)
[2023-07-14 11:41] LABS: INR 0.98 (0.85-1.15); PROTHROMBIN TIME 11.4 SEC (9.6-11.6)
[2023-07-14 11:43] LABS: PARTIAL THROMBOPLASTIN TIME 34.4 SEC (26.3-35.5)
[2023-07-14 11:49] LABS: SARS-CoV-2, RNA, NAAT NEGATIVE SARS CoV-2 (NEGATIVE)
[2023-07-14 11:57] LABS: INFLUENZA TYPE A Negative For Type A (NEGATIVE); INFLUENZA TYPE B Negative For Type B (NEGATIVE)
[2023-07-14] MEDS ORDERED: HYDROCODONE/ACETAMINOPHEN 5/325 MG TAB PO ONE (12:00)
[2023-07-14] MEDS: ATORVASTATIN 40 MG TABLET PO SCH (20:28)
[2023-07-14] MEDS: CEFAZOLIN SODIUM 1 GM VIAL IVPB SCH (20:29)
[2023-07-15] VITALS (20 sets, daily range): BP systolic 94–168; BP diastolic 45–98; PULSE 69–86; RESP 16–19; TEMP 98–98.4; O2SAT 99–100
[2023-07-15] MEDS: MORPHINE 2 MG SYG IVP PRN ×3 (01:07→13:37)
[2023-07-15] MEDS: INSULIN HUMULIN R 100 UNIT/ML 3ML SQ SCH ×4 (05:54→19:57)
[2023-07-15] MEDS: INSULIN GLARGINE 100 UNITS/ML 10 ML VIAL SQ SCH ×2 (05:55→19:58)
[2023-07-15 06:25] LABS: HEMATOCRIT 28.5 % (36-48); MEAN CORPUSCULAR HEMOGLOBIN 31.4 pg (27.0-33.0); MEAN CORPUSCULAR HGB CONC 30.9 g/dL (32.0-36.0); MEAN CORPUSCULAR VOLUME 101.8 fL (79-99); PLATELET COUNT (AUTO) 314 K/uL (130-400); RED CELL DISTRIBUTION WIDTH 13.9 % (11.0-15.5); WHITE BLOOD COUNT (AUTO) 13.2 K/uL (4.8-10.8)
[2023-07-15 06:33] LABS: ALBUMIN 1.6 g/dL (3.5-5.0); BILIRUBIN,TOTAL 0.2 mg/dL (0.2-1.0); PHOSPHORUS 6.7 mg/dL (2.5-4.9); POTASSIUM 4.3 mmol/L (3.5-5.1); TOTAL PROTEIN, SERUM 7.6 g/dL (6.0-8.3)
[2023-07-15 06:50] LABS: CREATININE 9.2 mg/dL (0.5-1.5)
[2023-07-15 07:44] LABS: BAND NEUTROPHILS % (MANUAL) 7 % (0-2); LYMPHOCYTES % (MANUAL) 22 % (22-44); MAN.DIFF COMMENT-IMPRESSION MANUAL DIFFERENTIAL; MONOCYTES % (MANUAL) 10 % (2-9); SEGMENTED NEUTROPHILS % 61 % (40-70); TOTAL CELLS COUNTED 100
[2023-07-15 07:45] LABS: PLATELET MORPHOLOGY COMMENT ADEQUATE; WBC MORPHOLOGY CONSISTENT W/DIFF
[2023-07-15] MEDS: HYDRALAZINE 25MG TABLET PO SCH ×3 (09:00→20:18)
[2023-07-15] MEDS: ACETAMINOPHEN 325 MG TAB PO PRN (10:50)
[2023-07-15] MEDS: HEPARIN 5,000 UNIT VIAL IJ PRN (12:20)
[2023-07-15] MEDS: PANTOPRAZOLE 40 MG TAB DR PO SCH (13:15)
[2023-07-15] MEDS: FERROUS SULFATE 325 MG TABLET.DR PO SCH (13:15)
[2023-07-15] MEDS: LISINOPRIL 20 MG TABLET PO SCH (13:15)
[2023-07-15] MEDS: Vitamin B Complex/Vit C/Folic Acid PO SCH (13:15)
[2023-07-15] MEDS: METOPROLOL TARTRATE 50 MG TAB PO SCH ×2 (13:15→19:54)
[2023-07-15] MEDS ORDERED: EPOETIN ALFA-EPBX (NON-ESRD) 10,000 UNIT/ML VIAL SQ ONE (13:30)
[2023-07-15] MEDS: METRONIDAZOLE 500MG/100ML BAG 100 ML IVPB SCH ×2 (13:41→21:14)
[2023-07-15] MEDS ORDERED: VANCOMYCIN 500MG+NS 100ML 100 ML IV SCH (16:00)
[2023-07-15] MEDS: CEFAZOLIN SODIUM 1 GM VIAL IVPB SCH (16:05)
[2023-07-15] MEDS: ATORVASTATIN 40 MG TABLET PO SCH (19:54)
[2023-07-15] MEDS: HYDROCODONE/ACETAMINOPHEN 5/325 MG TAB PO PRN (20:00)
[2023-07-15] MEDS ORDERED: HYDROMORPHONE 0.5 MG SYG (0.5MG/0.5ML) IVP ONE (23:00)
[2023-07-16] MEDS: HYDROCODONE/ACETAMINOPHEN 5/325 MG TAB PO PRN (02:54)
[2023-07-16 04:00] VITALS: BP 127/67; PULSE 76; RESP 20
[2023-07-16] MEDS: METRONIDAZOLE 500MG/100ML BAG 100 ML IVPB SCH ×3 (05:20→21:17)
[2023-07-16 05:28] LABS: HEMATOCRIT 29.5 % (36-48); MEAN CORPUSCULAR HEMOGLOBIN 30.6 pg (27.0-33.0); MEAN CORPUSCULAR HGB CONC 30.8 g/dL (32.0-36.0); MEAN CORPUSCULAR VOLUME 99.3 fL (79-99); PLATELET COUNT (AUTO) 339 K/uL (130-400); RED BLOOD CELL COUNT(AUTO) 2.97 MIL/uL (4.00-5.50); WHITE BLOOD COUNT (AUTO) 9.8 K/uL (4.8-10.8)
[2023-07-16 05:45] LABS: HEMOGLOBIN A1C 9.6 % (4.0-6.0)
[2023-07-16 05:55] LABS: ALBUMIN 1.5 g/dL (3.5-5.0); BILIRUBIN,TOTAL 0.2 mg/dL (0.2-1.0); CREATININE 7.3 mg/dL (0.5-1.5); PHOSPHORUS 6.4 mg/dL (2.5-4.9); TOTAL PROTEIN, SERUM 7.4 g/dL (6.0-8.3)
[2023-07-16 05:56] LABS: EOSINOPHILS % (MANUAL) 1 % (1-6); LYMPHOCYTES % (MANUAL) 17 % (22-44); MAN.DIFF COMMENT-IMPRESSION MANUAL DIFFERENTIAL; MONOCYTES % (MANUAL) 5 % (2-9); PLATELET MORPHOLOGY COMMENT ADEQUATE; SEGMENTED NEUTROPHILS % 77 % (40-70); TOTAL CELLS COUNTED 100; WBC MORPHOLOGY CONSISTENT W/DIFF
[2023-07-16] MEDS: INSULIN HUMULIN R 100 UNIT/ML 3ML SQ SCH ×4 (06:05→21:28)
[2023-07-16] MEDS: INSULIN GLARGINE 100 UNITS/ML 10 ML VIAL SQ SCH ×2 (06:08→21:26)
[2023-07-16 08:00] VITALS: BP 144/75; PULSE 74; RESP 18; O2SAT 99
[2023-07-16] MEDS: MORPHINE 2 MG SYG IVP PRN ×4 (08:38→21:18)
[2023-07-16] MEDS: Vitamin B Complex/Vit C/Folic Acid PO SCH (08:39)
[2023-07-16] MEDS: HYDRALAZINE 25MG TABLET PO SCH ×3 (08:39→21:18)
[2023-07-16] MEDS: PANTOPRAZOLE 40 MG TAB DR PO SCH (08:39)
[2023-07-16] MEDS: FERROUS SULFATE 325 MG TABLET.DR PO SCH (08:39)
[2023-07-16] MEDS: LISINOPRIL 20 MG TABLET PO SCH (08:39)
[2023-07-16] MEDS: METOPROLOL TARTRATE 50 MG TAB PO SCH ×2 (08:39→21:17)
[2023-07-16 11:56] VITALS: BP 144/77; PULSE 76; RESP 18
[2023-07-16] MEDS: CEFAZOLIN SODIUM 1 GM VIAL IVPB SCH (15:46)
[2023-07-16 16:00] VITALS: BP 143/71; PULSE 73; RESP 18
[2023-07-16 19:00] VITALS: BP 142/63; PULSE 75; RESP 16
[2023-07-16] MEDS: ATORVASTATIN 40 MG TABLET PO SCH (21:18)
[2023-07-16 23:56] VITALS: BP 113/68; PULSE 72; RESP 16
[2023-07-17] VITALS (19 sets, daily range): BP systolic 124–160; BP diastolic 66–90; PULSE 71–79; RESP 14–18; TEMP 97.9–98.2; O2SAT 99
[2023-07-17] MEDS: MORPHINE 2 MG SYG IVP PRN ×4 (02:00→16:47)
[2023-07-17] MEDS: METRONIDAZOLE 500MG/100ML BAG 100 ML IVPB SCH ×2 (05:50→13:24)
[2023-07-17] MEDS: INSULIN HUMULIN R 100 UNIT/ML 3ML SQ SCH ×3 (06:01→16:03)
[2023-07-17] MEDS: INSULIN GLARGINE 100 UNITS/ML 10 ML VIAL SQ SCH (06:27)
[2023-07-17 06:37] LABS: BASOPHILS # (AUTO) 0.08 K/uL (0.00-0.20); BASOPHILS % (AUTO) 0.9 % (0.0-5.0); EOSINOPHILS # (AUTO) 0.31 K/uL (0.00-0.70); EOSINOPHILS % (AUTO) 3.3 % (0.0-8.0); HEMATOCRIT 26.2 % (36-48); IMMATURE GRANULOCYTE ABSOLUTE 0.15 K/uL (0-1); LYMPHOCYTES # (AUTO) 2.3 K/uL (1.0-4.8); LYMPHOCYTES % (AUTO) 24.7 % (21.0-51.0); MEAN CORPUSCULAR HEMOGLOBIN 30.6 pg (27.0-33.0); MEAN CORPUSCULAR HGB CONC 31.7 g/dL (32.0-36.0); MEAN CORPUSCULAR VOLUME 96.7 fL (79-99); MONOCYTES # (AUTO) 1.1 K/uL (0.1-1.0); MONOCYTES % (AUTO) 11.2 % (3.0-13.0); NEUTROPHILS # (AUTO) 5.5 K/uL (1.8-7.7); NEUTROPHILS % (AUTO) 58.3 % (40.0-77.0); PLATELET COUNT (AUTO) 377 K/uL (130-400); RED BLOOD CELL COUNT(AUTO) 2.71 MIL/uL (4.00-5.50); RED CELL DISTRIBUTION WIDTH 13.9 % (11.0-15.5); WHITE BLOOD COUNT (AUTO) 9.4 K/uL (4.8-10.8)
[2023-07-17 06:53] LABS: ALBUMIN 1.4 g/dL (3.5-5.0); ASPARTATE AMINOTRANSFERASE 17 U/L (10-37); BILIRUBIN,TOTAL 0.2 mg/dL (0.2-1.0); CARBON DIOXIDE 24 mmol/L (21-32); GLOMERULAR FILTR. RATE CALC 5 mL/min (>90); GLUCOSE,RANDOM 167 mg/dL (70-105); POTASSIUM 4.3 mmol/L (3.5-5.1); SODIUM SERUM 125 mmol/L (136-145); TOTAL PROTEIN, SERUM 7.2 g/dL (6.0-8.3); UREA NITROGEN, BLOOD 47 mg/dL (7-18)
[2023-07-17 06:55] LABS: ALANINE AMINOTRANSFERASE < 6 U/L (12-78)
[2023-07-17 06:56] LABS: CHLORIDE 89 mmol/L (101-111); CREATININE 8.8 mg/dL (0.5-1.5)
[2023-07-17] MEDS: LISINOPRIL 20 MG TABLET PO SCH (07:59)
[2023-07-17] MEDS: FERROUS SULFATE 325 MG TABLET.DR PO SCH (07:59)
[2023-07-17] MEDS: Vitamin B Complex/Vit C/Folic Acid PO SCH (07:59)
[2023-07-17] MEDS: METOPROLOL TARTRATE 50 MG TAB PO SCH (08:00)
[2023-07-17] MEDS: PANTOPRAZOLE 40 MG TAB DR PO SCH (08:00)
[2023-07-17] MEDS: HYDRALAZINE 25MG TABLET PO SCH ×2 (08:03→13:24)
[2023-07-17] MEDS: CEFAZOLIN SODIUM 1 GM VIAL IVPB SCH (13:24)
[2023-07-17] MEDS ORDERED: EPOETIN ALFA-EPBX (NON-ESRD) 10,000 UNIT/ML VIAL SQ SCH (16:00)
[2023-07-17] MEDS: HEPARIN 5,000 UNIT VIAL IJ PRN (17:20)
== END 2023-07-17 18:39 | DRG 853 ==
LOC: EDH 04:05 → EDHIP 05:28 → 2BH 07:43 → 3CH 07-11 09:43
PROVIDERS: ADMIT Internal Medicine Critical Care Medicine; ATTEND Internal Medicine Critical Care Medicine
PROC: 5A1D70Z Performance of Urinary Filtration, Intermittent, Less than 6 Hours Per Day (ICD-10-PCS; 2023-07-10)
PROC: 5A1D70Z Performance of Urinary Filtration, Intermittent, Less than 6 Hours Per Day (ICD-10-PCS; 2023-07-12)
PROC: 0Y6M0ZD Detachment at Right Foot, Partial 4th Ray, Open Approach (ICD-10-PCS; 2023-07-13)
PROC: 0Y6M0ZF Detachment at Right Foot, Partial 5th Ray, Open Approach (ICD-10-PCS; 2023-07-13)
PROC: 0Y6M0ZC Detachment at Right Foot, Partial 3rd Ray, Open Approach (ICD-10-PCS; principal; 2023-07-13 11:26)
PROC: 5A1D70Z Performance of Urinary Filtration, Intermittent, Less than 6 Hours Per Day (ICD-10-PCS; 2023-07-15)
PROC: 5A1D70Z Performance of Urinary Filtration, Intermittent, Less than 6 Hours Per Day (ICD-10-PCS; 2023-07-17)
DX: A41.9 Sepsis, unspecified organism (principal); A48.0 Gas gangrene; M72.6 Necrotizing fasciitis; N18.6 End stage renal disease; E10.10 Type 1 diabetes mellitus with ketoacidosis without coma; E43 Unspecified severe protein-calorie malnutrition; I12.0 Hypertensive chronic kidney disease with stage 5 chronic kidney disease or end stage renal disease; L03.115 Cellulitis of right lower limb; M86.8X7 Other osteomyelitis, ankle and foot; D63.8 Anemia in other chronic diseases classified elsewhere; E10.22 Type 1 diabetes mellitus with diabetic chronic kidney disease; E10.319 Type 1 diabetes mellitus with unspecified diabetic retinopathy without macular edema; E10.51 Type 1 diabetes mellitus with diabetic peripheral angiopathy without gangrene; E10.621 Type 1 diabetes mellitus with foot ulcer; B95.2 Enterococcus as the cause of diseases classified elsewhere; E10.69 Type 1 diabetes mellitus with other specified complication; E66.9 Obesity, unspecified; E78.00 Pure hypercholesterolemia, unspecified; E87.6 Hypokalemia; H54.3 Unqualified visual loss, both eyes; L97.519 Non-pressure chronic ulcer of other part of right foot with unspecified severity; Z68.29 Body mass index [BMI] 29.0-29.9, adult; Z79.4 Long term (current) use of insulin; Z83.3 Family history of diabetes mellitus; Z88.0 Allergy status to penicillin; Z91.198 Patient's noncompliance with other medical treatment and regimen for other reason; Z99.2 Dependence on renal dialysis
CPT/HCPCS: 36415; 36600; 71045; 73630; 73718; 80048; 80053; 80202; 82010; 82435; 82550; 82803; 82947; 82948; 83036; 83605; 83735; 83880; 83930; 84100; 84132; 84145; 84295; 84484; 84703; 85018; 85025; 85610; 85730; 87040; 87070; 87076; 87077; 87186; 87205; 87635; 87804; 88305; 88311; 90715; 90935; 93005; 93925; C1894; G0378; J0360; J0690; J1170; J1644; J1815; J1956; J2250; J2270; J2405; J3010; J3370; J3490; J7030; J7070; A4222; A4223; A4649; A4930; A6446; C1729; C1750; Q5106

== ENCOUNTER → 2024-09-07 | Outpatient (CLI) | payer OTHER ==
[~2024-09-07] MED LIST changes: +ACET-2893 PO; +APIX2.5T PO; +BISA-151 PO; +CLON0.1T PO; +DOCU100C33 PO; -FERR325T29 PO; -FOLI0.8T22 PO; +FOLI0.8T53 PO; -FOLI1TAB85 PO; +GABA-529 PO; +GLUC1KIT3 IJ; -HYDR25 PO; -INSU100I32 SQ; +INSU100V52 SQ; +LACT10SO75 PO; +MIRT-144 PO; +NUTR1PAC14 PO; +ONDA-104 PO; +PROM25TA7 PO; +SANTO TP; +SENN8.6T32 PO; +SEVE2.4P3 PO; +TEMA15CA PO; +TRAM100T40 PO; +TRAM50TA4 PO
--- NOTE | 2024-09-07 09:53 | HMCIMG ---
CT CORONARY CALCIFICATION SCORING: Anatomic images were reviewed. The calcium score is being generated and reported separately. This report is for the visualized anatomy only. Visualized portions of the lungs are clear. Hilar and mediastinal structures appear normal. Osseous structures are unremarkable. There is a small left pleural effusion. Impression: 1. Small left pleural effusion, noncardiac findings are otherwise unremarkable. 2. The calcium score 70 consistent with a mild degree of calcified plaque. This is greater than 90th percentile for a patient this age. CT was performed with one or more following dose reduction techniques: automated exposure control, adjustment of the mA and kv according to patient's size, or use of a iterative reconstruction technique.
== END | disposition home or self-care (01) ==
LOC: RAH 09:14
PROVIDERS: ATTEND Internal Medicine Cardiovascular Disease
DX: Z13.6 Encounter for screening for cardiovascular disorders (principal); J90 Pleural effusion, not elsewhere classified
CPT/HCPCS: 75571

== ENCOUNTER → 2024-09-28 | Outpatient (CLI) | payer MEDICARE ==
--- NOTE | 2024-09-29 07:25 | HMCSR ---
APPROVED REPORT EXAM: Two-dimensional and M-mode echocardiogram with Doppler and color Doppler. INDICATION ICD: I10.0 Essential (primary) Hypertension RISK FACTORS Diabetes 2D Dimensions RVDd4.0 cmLVEF(%)55.2 (>50%)LVED Vol(simp.)111.0 mL IVSd1.1 (0.7-1.1cm)FS(%)28 %LVES Vol(simp.)53.0 mL LVDd4.2 (3.8-5.6cm)Ao Root(2D)2.4 (2.0-3.7cm)LVEF(%, simp.)52 % PWd1.2 (0.7-1.1cm)LVOT diam1.9 (1.8-2.4cm)LA ESV INDEX (BP)30.96 mL/m2 LVDs3.0 (2.5-4.0cm)IVC diam2.0 cm Aortic Valve AoV Vmax1.6 m/Ivory Peak GR10.3 mmHgLVOT Vmax1.2 m/s AoV VTI0.3 mAo Mean GR5.3 mmHgLVOT VTI0.27 m CRIS (VMAX)2.1 cm2AVA (VTI) 2.1 cm2 Mitral Valve MV E Xeyt078.3 cm/sDECEL Lfhc422 ms MV A Vmax93.8 cm/sP 1/2 T43 ms E/A ratio1.2MVA (PHT)5.1 cm2 MR Max PG80 mmHg TDI E/E' Pfxhsk71.9E/E' Fnnhuet70.3 Pulmonary Valve PV Vmax1.0 m/sPV VTI0.27 mPV Mean GR3 mmHg PV Peak GR3.9 mmHgPI End Yahaira. Thierno 1.1 cm/s Tricuspid Valve TR Vmax2.5 m/sRAP (EST) 15 ukRoPTII14.3 mmHg TR Peak GR25.3 mmHg Left Ventricle Left ventricular cavity size is normal. There is normal LV segmental wall motion. There is mild lakisha ntric left ventricular hypertrophy. LVEF is 55%. No left ventricle thrombus noted on this study. Right Ventricle The right ventricle is normal size. The right ventricular systolic function is normal. Atria The left atrium size is normal. Secundum atrial septal defect is present. The right atrium is mildly dilated. Aortic Valve Aortic valve is trileaflet. Aortic valve leaflets are sclerotic but open well. Trace aortic regurgita tion. There is no aortic valvular stenosis. Mitral Valve Mitral valve leaflets are mildly sclerotic but open well. Mitral regurgitation is trace to mild. Ther e is no mitral valve stenosis. Tricuspid Valve The tricuspid valve leaflets appear normal. There is trace to mild tricuspid regurgitation. Right robert tricular systolic pressure is estimated at 40 mmHg. Pulmonic Valve The pulmonic valve leaflets are thin and pliable; valve motion is normal. There is trace pulmonic jeremie vular regurgitation. Great Vessels The aortic root is normal in size. IVC is dilated and collapses <50% with inspiration. Pericardium No pericardial effusion. Conclusion Left ventricular cavity size is normal. There is mild concentric left ventricular hypertrophy. LVEF is 55%. The right ventricle is normal size. The left atrium size is normal. Aortic valve is trileaflet. Aortic valve leaflets are sclerotic but open well. Trace aortic regurgitation. Mitral valve leaflets are mildly sclerotic but open well. Mitral regurgitation is trace to mild. There is trace to mild tricuspid regurgitation. Right ventricular systolic pressure is estimated at 40 mmHg. There is trace pulmonic valvular regurgitation. The aortic root is normal in size. IVC is dilated and collapses <50% with inspiration. No pericardial effusion.
== END | disposition home or self-care (01) ==
LOC: SHCH 08:54
PROVIDERS: ATTEND Internal Medicine Cardiovascular Disease
DX: I08.3 Combined rheumatic disorders of mitral, aortic and tricuspid valves (principal); I73.9 Peripheral vascular disease, unspecified; I11.9 Hypertensive heart disease without heart failure
CPT/HCPCS: 93306